=== PATIENT | female | born 1985 | race Caucasian/White ===

== ENCOUNTER 2020-01-26 09:00 | Outpatient (REF) | payer OTHER, MEDICAID, SELFPAY ==
--- NOTE | 2020-01-26 09:06 | XR_ITS ---
EXAMINATION: XR RIBS, RIGHT CLINICAL INFORMATION: Fluoroscopy diameter. COMPARISON: None TECHNIQUE: 3 views of the right ribs were obtained. Chest one view. FINDINGS: Dose: Lungs are clear. No consolidation, pneumothorax, or pleural effusion. The cardiomediastinal silhouette and pulmonary vasculature are normal. Right RIBS: There is no visible acute rib fracture or bony abnormality.. Marker placed along the right lower ribs reveal no fracture XR/XR ribs RT min 3V w CXR1V IMPRESSION: Unremarkable chest examination. Unremarkable right rib exam.
== END 2020-01-26 09:01 | disposition home or self-care (01) ==
LOC: HO.HMGCX 09:00
PROVIDERS: PCP Internal Medicine; Visit Provider Nurse Practitioner Family
DX: R07.81 Pleurodynia (principal)
CPT/HCPCS: 71101

== ENCOUNTER 2020-02-22 14:32 | Outpatient (REF) | payer OTHER, MEDICAID, SELFPAY ==
--- NOTE | 2020-02-22 14:34 | US_ITS ---
EXAMINATION: US VENOUS ULTRASOUND WITH DOPPLER LOWER EXTREMITY, RIGHT CLINICAL INFORMATION: Calf pain COMPARISON: None TECHNIQUE: Ultrasound of the deep veins is performed from the hip to the calf with compression sonography and color and pulse Doppler assessment. Spectral analysis with color-flow imaging is performed. FINDINGS: There is normal venous compression and respiratory variation and augmented flow. The visualized common femoral vein, superficial femoral vein, profunda femoral vein, popliteal vein, and the trifurcation region shows no evidence of deep venous thrombosis. There is no significant popliteal fossa cyst. Popliteal artery aneurysm. If the patient's symptoms persist, followup ultrasound in 5 days 7 days might be of value to exclude proximal propagation from a non-visualized calf vein. US/US venous duplex LE RT IMPRESSION: No acute DVT demonstrated in the right lower extremity.
== END 2020-02-22 14:33 | disposition home or self-care (01) ==
LOC: HO.HMGCX 14:32
PROVIDERS: PCP Internal Medicine; Visit Provider Nurse Practitioner Family
DX: M79.661 Pain in right lower leg (principal)
CPT/HCPCS: 93971

== ENCOUNTER 2020-02-26 12:07 | Outpatient (REF) | payer OTHER, MEDICAID, SELFPAY ==
[2020-02-26 13:53] LABS: MANUAL DIFF FLAG NO
[2020-02-26 14:10] LABS: Basophils Absolute Auto 0.1 X10*3/uL (0.0-0.2); Basophils Percent Auto 0.9 % (0-2); Eosinophils Absolute Auto 0.3 X10*3/uL (0.0-0.4); Eosinophils Percent Auto 3.5 % (0-4); Hematocrit 38.2 % (37-47); Hemoglobin 12.1 g/dl (12.0-16.0); Imm Gran Abs Auto 0.04 X10*3/uL (0.00-0.03); Imm Gran Pct Auto 0.4 % (0.0-0.4); Lymphocytes Absolute Auto 2.6 X10*3/uL (1.2-4.9); Lymphocytes Percent Auto 28.3 % (20-40); Mean Corpuscular HGB Conc 31.7 g/dl (31.0-35.0); Mean Corpuscular Hemoglobin 26.6 pg (27.0-33.0); Mean Platelet Volume 12.2 fL (9.4-12.3); Monocytes Absolute Auto 0.7 X10*3/uL (0.1-1.2); Monocytes Percent Auto 7.3 % (2-11); Neutrophils Absolute Auto 5.4 X10*3/uL (2.0-8.3); Neutrophils Percent Auto 59.6 % (45-73); Platelet Count 282 X10*3/uL (160-400); Red Blood Count 4.55 X10*6/uL (4.20-5.50); Red Cell Distribution Width 14.2 % (11.0-16.0)
[2020-02-26 14:18] LABS: D Dimer < 200 NG/ML
[2020-02-26 14:38] LABS: Anion Gap 13 (12-20); Blood Urea Nitrogen 13 mg/dL (9-16); Calcium 9.2 mg/dL (8.4-10.2); Carbon Dioxide 26 mmol/L (22-29); Chloride 105 mmol/L (96-108); Estimated Glomerular Filt Rate > 60; Glucose Random 83 mg/dL (60-115); Potassium 3.9 mmol/l (3.3-5.1); Sodium 140 mmol/L (135-145)
== END 2020-02-26 12:08 | disposition home or self-care (01) ==
LOC: HO.HMGCLDS 12:07
PROVIDERS: PCP Internal Medicine; Visit Provider Nurse Practitioner Family
DX: R06.02 Shortness of breath (principal)
CPT/HCPCS: 36415; 80048; 85025; 85379

== ENCOUNTER 2020-02-26 14:20 | Outpatient (REF) | payer OTHER, MEDICAID, SELFPAY ==
[2020-02-27 08:55] LABS: Influenza A PCR NEGATIVE (Negative); Influenza B PCR NEGATIVE (Negative); Resp Syncy Virus RNA Qual PCR NEGATIVE (Negative); SARS COV2 PCR INHOUSE NEGATIVE (Negative)
== END 2020-02-26 14:21 | disposition home or self-care (01) ==
LOC: HO.LAB 14:20
PROVIDERS: Visit Provider Nurse Practitioner Family
DX: R06.02 Shortness of breath (principal); M79.10 Myalgia, unspecified site; Z20.822 Contact with and (suspected) exposure to COVID-19
CPT/HCPCS: 0241U; 36415

== ENCOUNTER 2020-05-07 18:25 | Emergency (ER) | payer OTHER, MEDICAID, SELFPAY ==
--- NOTE | ~2020-05-07 | CT_ITS ---
EXAMINATION: CT HEAD WITHOUT CONTRAST CLINICAL INFORMATION: Hypertension. Headaches. COMPARISON: MRI of the brain May 09, 2010 TECHNIQUE: Contiguous axial imaging was performed from the skull base to vertex without intravenous administration of contrast. Coronal and sagittal reformatted images are performed at the CT scanner This CT examination was performed using dose optimization techniques as appropriate, variously including the following: *Automated exposure control *Adjustment of mA and/or kV according to patient size (this includes techniques or standardized protocols for targeted exams where dose is matched to indication/reason for exam; i.e. extremities or head) *Use of iterative reconstruction technique DLP: 554 mGy-cm FINDINGS: There is no evidence of acute intracranial hemorrhage or territorial infarction. No abnormal mass effect or midline shift is seen. Soares to white matter differentiation is well preserved. No extra-axial fluid collections are identified. The ventricles are normal in size. There is no abnormal attenuation within the brain parenchyma. The osseous structures and soft tissues are normal. The mastoid air cells and visualized portions of the paranasal sinuses are well aerated. CT/CT head/brain wo con IMPRESSION: No acute intracranial pathology.
[2020-05-07 18:41] VITALS: BP 196/97; PULSE 95; RESP 14; TEMP 36.4; O2SAT 100
--- NOTE | 2020-05-07 18:42 | ECG_ITS ---
Test Reason : Chest Pain Blood Pressure : / mmHG Vent. Rate : 092 BPM Atrial Rate : 092 BPM P-R Int : 126 ms QRS Dur : 080 ms QT Int : 352 ms P-R-T Axes : 035 065 040 degrees QTc Int : 435 ms Normal sinus rhythm Normal ECG When compared with ECG of 22:05 Questionable change in QRS axis Referred By: Max Hernandez Electronically Signed By: TERESITA REYNOLDS MD MTDDavid
[2020-05-07 20:15] VITALS: BP 188/97; PULSE 94; RESP 16; TEMP 36.6; O2SAT 100; BMI 29.1
[2020-05-07 20:28] LABS: MANUAL DIFF FLAG NO
[2020-05-07 20:31] LABS: Basophils Absolute Auto 0.1 X10*3/uL (0.0-0.2); Basophils Percent Auto 0.4 % (0-2); Eosinophils Absolute Auto 0.3 X10*3/uL (0.0-0.4); Eosinophils Percent Auto 2.8 % (0-4); Hematocrit 36.9 % (37-47); Hemoglobin 11.4 g/dl (12.0-16.0); Imm Gran Abs Auto 0.03 X10*3/uL (0.00-0.03); Imm Gran Pct Auto 0.3 % (0.0-0.4); Lymphocytes Absolute Auto 3.7 X10*3/uL (1.2-4.9); Lymphocytes Percent Auto 32.2 % (20-40); Mean Corpuscular HGB Conc 30.9 g/dl (31.0-35.0); Mean Corpuscular Hemoglobin 25.9 pg (27.0-33.0); Mean Corpuscular Volume 83.9 fL (80-98); Mean Platelet Volume 11.3 fL (9.4-12.3); Monocytes Absolute Auto 0.7 X10*3/uL (0.1-1.2); Neutrophils Absolute Auto 6.8 X10*3/uL (2.0-8.3); Neutrophils Percent Auto 58.3 % (45-73); Platelet Count 346 X10*3/uL (160-400); Red Cell Distribution Width 14.6 % (11.0-16.0); White Blood Count 11.6 X10*3/uL (4.8-10.8)
[2020-05-07 20:52] LABS: Anion Gap 15 (12-20); Blood Urea Nitrogen 14 mg/dL (9-16); Calcium 9.2 mg/dL (8.4-10.2); Carbon Dioxide 22 mmol/L (22-29); Chloride 106 mmol/L (96-108); Creatinine Clr Calc Pharmacy 95.8; Estimated Glomerular Filt Rate > 60; Glucose Random 85 mg/dL (60-115); Potassium 3.7 mmol/L (3.3-5.1); Sodium 139 mmol/L (135-145)
[2020-05-07 22:00] VITALS: BP 157/98; PULSE 86; RESP 15; O2SAT 98
--- NOTE | 2020-05-07 22:46 | ED.HA ---
HPI - Headache General Chief Complaint: Headache Stated Complaint: chest pain Time Seen by Provider: 05/07/20 22:42 Source: patient Mode of arrival: ambulatory Limitations: no limitations History of Present Illness HPI Narrative: Patient's history of occasional migraine headache, hypertension on amlodipine and losartan for hypertension and blood pressure usually controlled since 10:00 morning today patient has been having headache mostly localized in the frontal part no light sensitivity but sensitive to sound + slight nausea. 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 Also patient complaining of subjective tingling and numbness right hand MD elicited complaint: headache and migraine Onset (ago): hour(s) Onset description: gradually Location: frontal Severity: moderate Quality & Timing: throbbing Exacerbating factors: none and noise Relieving factors: nothing Context: occurred at rest Associated symptoms: sensitivity to sound, tingling and numbness Treatments prior to arrival: none Related Data Home Medications Medication Instructions Recorded Confirmed ibuprofen 800 mg tablet 800 mg PO TID 01/26/20 04/21/20 losartan 25 mg tablet 25 mg PO DAILY 01/26/20 04/21/20 amlodipine 10 mg tablet 10 mg PO DAILY 02/15/20 04/21/20 aspirin 81 mg tablet,delayed 81 mg PO DAILY 02/26/20 04/21/20 release Previous Rx's Medication Instructions Recorded levocetirizine 5 mg tablet 5 mg PO QPM PRN #30 tab 02/08/20 albuterol sulfate 90 mcg/actuation 1 puff INHALATION Q4H PRN #8.5 g 02/22/20 aerosol inhaler [id number]-qbcxiae-lwwxtoic 50 1 tab PO Q6H PRN #20 tab 04/19/20 mg-325 mg-40 mg tablet losartan 50 mg tablet 50 mg PO DAILY #30 tab 04/19/20 Allergies Allergy/AdvReac Type Severity Reaction Status Date / Time Iodinated Contrast Media AdvReac Mild HIVES Verified 04/21/20 23:35 [IV CONTRAST] azithromycin AdvReac Unknown nausea and Verified 04/21/20 23:35 [Zithromax Z-Darvin] vomiting Review of Systems Review of Systems: Constitutional : No Weight loss, No Fever, No Chills ENT/Mouth : No sore throat, No Rhinorrhea Eyes: No Eye Pain, No Swelling Cardiovascular : No Chest Pain, no palpitations Respiratory : No Cough, No Sputum, no shortness of breath Gastrointestinal : no Nausea, No Vomiting, No Diarrhea, No abdominal Pain, no black stools Genitourinary : No Dysuria, No Urinary Frequency Musculoskeletal : No joint pain, No Myalgias, No Joint Swelling Skin : No Skin Lesions, No rash Neuro : No Weakness, No Numbness, No Dizziness, ++ Headache Psych : No Anxiety/Panic, No Depression Heme/Lymph: No Bruising, No Lymphadenopathy Endocrine : No Polyuria, No Polydipsia All other systems reviewed and are negative FOR[facility]LY [facility] Past Medical History Medical History Acute right flank pain Close exposure to COVID-19 virus Conjunctivitis Environmental and seasonal allergies Essential hypertension History of nephrolithiasis Myalgia after COVID-19 vaccination Nephrolithiasis Reactive airway disease Right arm pain Surgical History No pertinent past surgical history Family History Family History Mother Diabetes mellitus Hypertension Social History Social History Alcohol intake: current Alcohol intake frequency: does not drink Smoking Status: Never smoker Use of substances other than those prescribed or required for medical reasons: Yes Substance Use Type: Marijuana Substance Use Frequency: Socially Advance Directives: No Advance Directives Information Provided: Yes Physical Exam Vital Signs: Vital Signs: Last Vital Signs Temp 98 F 05/07/20 20:15 Pulse 85 05/08/20 00:52 Resp 15 05/08/20 00:00 BP 157/102 H 05/08/20 00:52 Pulse Ox 99 05/08/20 00:00 Body Mass Index 29.1 Appearance: Alert. Oriented X3. No acute distress. Eyes: Pupils equal, round and reactive to light. ENT: Pharynx normal. No temporal artery tenderness Neck: Normal inspection. Neck supple. CVS: Normal heart rate and rhythm. Pulses normal. Respiratory: No respiratory distress. Breath sounds normal. Abdomen: Soft and nontender. Bowel sounds are present, no mass palpable, no CVA tenderness Skin: Skin warm and dry. Normal skin color. Normal skin turgor. Extremities: No lower extremity edema. Neuro: Oriented X 3. No motor deficit. No sensory deficit. Cranial nerves 2-12 intact no cerebellar signs MDM - Headache MDM Narrative Medical decision making narrative: Patient with hypertension and migraine headaches headache responded to Imitrex CT scan head is negative for any acute pathology. Patient's persistent hypertension on amlodipine and losartan will advice to increase the dose of losartan to 100 mg daily for persistent hypertension and advised to follow-up with PCP about the dosing of losartan and hypertension management Differential Diagnosis Differential diagnosis: Likely migraine Lab Data Attestation: I reviewed the patient's lab results. Result diagrams: 05/07/20 20:22 05/07/20 20:22 Labs: Lab Results 05/07/20 05/07/20 05/07/20 Range/Units 20:22 20:22 20:22 WBC 11.6 H (4.8-10.8) X10*3/uL RBC 4.40 (4.20-5.50) X10*6/uL Hgb 11.4 L (12.0-16.0) g/dl Hct 36.9 L (37-47) % MCV 83.9 (80-98) fL MCH 25.9 L (27.0-33.0) pg MCHC 30.9 L (31.0-35.0) g/dl RDW 14.6 (11.0-16.0) % Plt Count 346 (160-400) X10*3/uL MPV 11.3 (9.4-12.3) fL Immature Gran % (Auto) 0.3 (0.0-0.4) % Neut % (Auto) 58.3 (45-73) % Lymph % (Auto) 32.2 (20-40) % [place] % (Auto) 6.0 (2-11) % Eos % (Auto) 2.8 (0-4) % Baso % (Auto) 0.4 (0-2) % Lymph # (Auto) 3.7 (1.2-4.9) X10*3/uL [place] # (Auto) 0.7 (0.1-1.2) X10*3/uL Eos # (Auto) 0.3 (0.0-0.4) X10*3/uL Baso # (Auto) 0.1 (0.0-0.2) X10*3/uL Abs Immat Gran (auto) 0.03 (0.00-0.03) X10*3/uL Absolute Neuts (auto) 6.8 (2.0-8.3) X10*3/uL Absolute Nucleated RBC 0.000 (0.0-0.012) X10*3/uL Nucleated RBC % (auto) 0.0 (0.0-0.2) /100WBC Hold Blue Top SEE NOTE Sodium 139 (135-145) mmol/L Potassium 3.7 (3.3-5.1) mmol/L Chloride 106 (96-108) mmol/L Carbon Dioxide 22 (22-29) mmol/L Anion Gap 15 (12-20) BUN 14 (9-16) mg/dL Creatinine 0.71 (0.5-1.4) mg/dL Estim Creat Clear Calc 95.8 Estimated GFR > 60 Random Glucose 85 (60-115) mg/dL Calcium 9.2 (8.4-10.2) mg/dL Discharge Plan Discharge Prescriptions: No Action losartan 25 mg tablet 25 mg PO DAILY RF: 0 ibuprofen 800 mg tablet 800 mg PO TID RF: 0 levocetirizine 5 mg tablet 5 mg PO QPM PRN (Reason: allergy symptoms) Qty: 30 RF: 0 amlodipine 10 mg tablet 10 mg PO DAILY RF: 0 albuterol sulfate 90 mcg/actuation HFA aerosol inhaler 1 puff inhalation Q4H PRN (Reason: shortness of breath or wheezing) Qty: 8.5 RF: 1 losartan 50 mg tablet 50 mg PO DAILY Qty: 30 RF: 5 ioewyptqwr-kqorrio-cdpodcwj 50-325-40 mg tablet 1 tab PO Q6H PRN (Reason: pain) Qty: 20 RF: 0 aspirin [Adult Low Dose Aspirin] 81 mg tablet,delayed release (DR/EC) 81 mg PO DAILY RF: 0
[2020-05-08] VITALS: BP 140/89; PULSE 83; RESP 15; O2SAT 99
[2020-05-08] MEDS: Losartan Potassium 50 MG TABLET 25 MG PO (00:10)
[2020-05-08 00:52] VITALS: BP 157/102; PULSE 85
[2020-05-08] MEDS: Losartan Potassium 25 MG TABLET PO (00:52)
== END 2020-05-08 01:59 | disposition home or self-care (01) ==
PROVIDERS: Emergency Provider Internal Medicine; PCP Internal Medicine
DX: G43.909 Migraine, unspecified, not intractable, without status migrainosus (principal); F12.90 Cannabis use, unspecified, uncomplicated; Z79.899 Other long term (current) drug therapy
CPT/HCPCS: 36415; 70450; 80048; 85025; 93005; 99284; J3030

== ENCOUNTER 2020-05-08 09:03 | Emergency (ER) | payer OTHER, MEDICAID, SELFPAY ==
[2020-05-08 09:39] VITALS: BP 128/92; PULSE 94; RESP 18; TEMP 37.1; O2SAT 100; BMI 29.0
--- NOTE | 2020-05-08 10:10 | ECG_ITS ---
Test Reason : CHEST PAIN Blood Pressure : / mmHG Vent. Rate : 080 BPM Atrial Rate : 080 BPM P-R Int : 130 ms QRS Dur : 078 ms QT Int : 394 ms P-R-T Axes : 011 061 035 degrees QTc Int : 454 ms Normal sinus rhythm Normal ECG When compared with ECG of 07-MAY-2020 18:42, No significant change was found Referred By: Mookie Abarca Electronically Signed By:TERESITA REYNOLDS MD
--- NOTE | 2020-05-08 10:11 | ED_ITS ---
HPI - Headache General Chief Complaint: Headache Stated Complaint: MIGRAINE Time Seen by Provider: 05/08/20 09:38 Source: patient Mode of arrival: ambulatory Limitations: no limitations History of Present Illness HPI Narrative: Patient presents to ED presenting as headache migraine exacerbation. Patient stating generalized headache with light sensitivity and nausea. Patient denies any neck stiffness, fever, chills, or recent trauma to the head. Patient was seen here yesterday with similar complaints, but that time had elevated blood pressure. Patient states she was informed to increase her losartan. Patient was prescribed Imitrex but has not yet started taking the medication. Patient return to ED because today she still having the headache and had no relief with extra strenght Tylenol. Patient denies any slurred speech, loss of vision, paralysis of extremities, chest pain, shortness of breath, or dizziness. Related Data Home Medications Medication Instructions Recorded Confirmed ibuprofen 800 mg tablet 800 mg PO TID 01/26/20 04/21/20 losartan 25 mg tablet 25 mg PO DAILY 01/26/20 04/21/20 amlodipine 10 mg tablet 10 mg PO DAILY 02/15/20 04/21/20 aspirin 81 mg tablet,delayed 81 mg PO DAILY 02/26/20 04/21/20 release Previous Rx's Medication Instructions Recorded levocetirizine 5 mg tablet 5 mg PO QPM PRN #30 tab 02/08/20 albuterol sulfate 90 mcg/actuation 1 puff INHALATION Q4H PRN #8.5 g 02/22/20 aerosol inhaler [id number]-muwwths-omhjvuqy 50 1 tab PO Q6H PRN #20 tab 04/19/20 mg-325 mg-40 mg tablet losartan 50 mg tablet 50 mg PO DAILY #30 tab 04/19/20 naproxen 500 mg PO BID PRN #20 tab 05/08/20 sumatriptan succinate [Imitrex] 50 mg PO Q2H PRN #10 tab 05/08/20 Allergies Allergy/AdvReac Type Severity Reaction Status Date / Time Iodinated Contrast Media AdvReac Mild HIVES Verified 04/21/20 23:35 [IV CONTRAST] azithromycin AdvReac Unknown nausea and Verified 04/21/20 23:35 [Zithromax Z-Darvin] vomiting Review of Systems Review of Systems: Yes all other systems are reviewed and are negative Constitutional: Constitutional: Reports as per HPI, Reports no additional constitutional complaints and Reports headache(s) Eyes: Eyes: Reports as per HPI and Reports no additional eye complaints ENT: Reports system reviewed and no additional complaints, except as documented, Reports as per HPI and Reports headache(s) Cardiovascular: Cardiovascular: Reports as per HPI and Reports no additional cardiovascular complaints Respiratory: Respiratory: Reports as per HPI and Reports no additional respiratory complaints Gastrointestinal: Gastrointestinal: Reports as per HPI, Reports no additional gastrointestinal complaints and Reports nausea Genitourinary: Genitourinary: Reports no additional female genitourinary complaints and Reports as per HPI Musculoskeletal: Musculoskeletal: Reports no additional musculoskeletal complaints and Reports as per HPI Neurologic: Reports system reviewed and no additional complaints, except as documented, Reports as per HPI and Reports headache(s) Psychiatric: Psychiatric: Reports no additional psychiatric complaints and Rep orts as per HPI PMFSH Past Medical History Medical History Acute right flank pain Close exposure to COVID-19 virus Conjunctivitis Environmental and seasonal allergies Essential hypertension History of nephrolithiasis Myalgia after COVID-19 vaccination Nephrolithiasis Reactive airway disease Right arm pain Surgical History No pertinent past surgical history Family History Family History Mother Diabetes mellitus Hypertension Social History Social History Alcohol intake: never Smoking Status: Never smoker Use of substances other than those prescribed or required for medical reasons: No Substance Use Type: Marijuana Advance Directives: No Advance Directives Information Provided: No Physical Exam Vital Signs: Vital Signs: Last Vital Signs Temp 98.1 F 05/08/20 11:59 Pulse 83 05/08/20 11:59 Resp 18 05/08/20 11:59 BP 141/93 H 05/08/20 11:59 Pulse Ox 100 05/08/20 11:59 Body Mass Index 29.0 Const: General: cooperative, healthy appearing, comfortable, no acute distress, well developed, alert and awake Orientation/consciousness: patient oriented x3 HENMT: Head: Yes normal to inspection, Yes No palpable skull fracture present, Yes normocephalic, No atraumatic, No abrasion, No Crow's sign, No contusion, No cranial bruits, No hematoma, No laceration, No occipital foramen tenderness, No palpable skull fracture, No raccoon eyes, No scalp lesion, No scalp tenderness, No Temporal artery tenderness present and No periorbital ecchymosis Eyes: Other: Mild photosensitivity. Negative nystagmus General: appearance normal, both eyes and all related structures Neck: Neck: Yes normal visual inspection, Yes full ROM, Yes no lymphadenopathy, Yes no meningeal signs, Yes trachea midline, Yes supple and No tender Chest: Chest palpation & inspection: normal inspection of the chest and normal palpation of entire chest wall Resp: Effort & Inspection: normal respiratory effort and able to speak in complete sentences Auscultation: clear to auscultation bilaterally Cardio: Jugular venous distension: no JVD Heart sounds: S1 normal heart sound present and S2 normal heart sound present GI: Inspection: Yes normal to inspection and No abdominal wall ecchymosis Palpation (GI): Soft to palpation, not firm, nontender, no guarding and not rigid : General: No CVA tenderness and Yes no CVA tenderness Back/Spine/Pelvis: Back: no CVA tenderness, No CVA tenderness and No back tenderness Skin: General skin exam: no rashes or lesions noted and elasticity normal Neuro: Other: Negative facial droop. Negative slurred speech. Negative pronator drift. All extremities equal strength 5+. Negative Romberg. F vpxld-lj-kbgu and rapid hand movement intact. General: patient oriented x3, no meningeal signs and CN's II-XI intact bilaterally Cranial nerves: Yes CN's II-XII intact bilaterally Extrem: General: Yes normal to inspection and Yes full ROM Psych: Appearance: grossly normal, well kempt and not disheveled Course Course Course Narrative: History physical exam indicate migraine exacerbation. Not suspecting meningitis or brain bleed. Patient is not having no thunderclap. Patient have headache since yesterday at 10:00 and had a normal head CT in the evening 6 hours after onset. Not suspecting stroke. Neuro exam is intact. Negative for neuro deficit. No need for repeat imaging. Will give migraine cocktail. Also due to patient having history of high blood pressure will do EKG and 1 troponin to make sure it is not typical [place] presentation. Reevaluation(s) Reevaluation #1: Patient states she feels headache resolved after receiving meds. EKG negative STEMI. Waiting for lab work. Patient no longer has headache. Reevaluation #2: Patient blood work normal. Patient's troponin negative. Patient will be discharged with naproxen. Patient informed to follow-up with PCP for Neurology referral. Once again not suspect a meningitis or brain bleed. Not suspecting stroke. Negative for any neuro deficit. Patient had CT scan yesterday 6 hours after onset of symptoms. Negative for any neck stiffness. Negative for temporal tenderness on palpation. no History of HIV and herpes to indicate possible aseptic meningitis. MDM - Headache MDM Narrative Medical decision making narrative: Migraine exacerbation Lab Data Result diagrams: 05/08/20 11:47 05/08/20 11:47 Labs: Lab Results 05/08/20 05/08/20 05/08/20 Range/Units 11:47 11:47 11:47 WBC 8.3 (4.8-10.8) X10*3/uL RBC 4.75 (4.20-5.50) X10*6/uL Hgb 12.4 (12.0-16.0) g/dl Hct 40.0 (37-47) % MCV 84.2 (80-98) fL MCH 26.1 L (27.0-33.0) pg MCHC 31.0 (31.0-35.0) g/dl RDW 14.6 (11.0-16.0) % Plt Count 329 (160-400) X10*3/uL MPV 11.3 (9.4-12.3) fL Immature Gran % (Auto) 0.2 (0.0-0.4) % Neut % (Auto) 65.8 (45-73) % Lymph % (Auto) 23.4 (20-40) % [place] % (Auto) 6.7 (2-11) % Eos % (Auto) 3.4 (0-4) % Baso % (Auto) 0.5 (0-2) % Lymph # (Auto) 1.9 (1.2-4.9) X10*3/uL [place] # (Auto) 0.6 (0.1-1.2) X10*3/uL Eos # (Auto) 0.3 (0.0-0.4) X10*3/uL Baso # (Auto) 0.0 (0.0-0.2) X10*3/uL Abs Immat Gran (auto) 0.02 (0.00-0.03) X10*3/uL Absolute Neuts (auto) 5.4 (2.0-8.3) X10*3/uL Absolute Nucleated RBC 0.000 (0.0-0.012) X10*3/uL Nucleated RBC % (auto) 0.0 (0.0-0.2) /100WBC PT 12.9 (10.8-13.0) SEC INR 1.1 (0.9-1.1) APTT 43.5 H (24.1-38.0) SEC Sodium 141 (135-145) mmol/L Potassium 3.9 (3.3-5.1) mmol/L Chloride 109 H (96-108) mmol/L Carbon Dioxide 22 (22-29) mmol/L Anion Gap 14 (12-20) BUN 9 (9-16) mg/dL Creatinine 0.67 (0.5-1.4) mg/dL Estim Creat Clear Calc 101.4 Estimated GFR > 60 Random Glucose 88 (60-115) mg/dL Calcium 8.4 D (8.4-10.2) mg/dL Total Bilirubin 0.3 (0.0-1.0) mg/dL AST 14 (5-31) U/L ALT 12 (0-31) U/L Alkaline Phosphatase 91 (39-117) U/L Troponin I High Sens (<3.5-17.0) ng/L Total Protein 7.6 (6.5-8.0) g/dL Albumin 4.5 (3.5-5.0) g/dL Beta HCG, Quant < 2 mIU/mL 05/08/20 Range/Units 11:47 WBC (4.8-10.8) X10*3/uL RBC (4.20-5.50) X10*6/uL Hgb (12.0-16.0) g/dl Hct (37-47) % MCV (80-98) fL MCH (27.0-33.0) pg MCHC (31.0-35.0) g/dl RDW (11.0-16.0) % Plt Count (160-400) X10*3/uL MPV (9.4-12.3) fL Immature Gran % (Auto) (0.0-0.4) % Neut % (Auto) (45-73) % Lymph % (Auto) (20-40) % [place] % (Auto) (2-11) % Eos % (Auto) (0-4) % Baso % (Auto) (0-2) % Lymph # (Auto) (1.2-4.9) X10*3/uL [place] # (Auto) (0.1-1.2) X10*3/uL Eos # (Auto) (0.0-0.4) X10*3/uL Baso # (Auto) (0.0-0.2) X10*3/uL Abs Immat Gran (auto) (0.00-0.03) X10*3/uL Absolute Neuts (auto) (2.0-8.3) X10*3/uL Absolute Nucleated RBC (0.0-0.012) X10*3/uL Nucleated RBC % (auto) (0.0-0.2) /100WBC PT (10.8-13.0) SEC INR (0.9-1.1) APTT (24.1-38.0) SEC Sodium (135-145) mmol/L Potassium (3.3-5.1) mmol/L Chloride (96-108) mmol/L Carbon Dioxide (22-29) mmol/L Anion Gap (12-20) BUN (9-16) mg/dL Creatinine (0.5-1.4) mg/dL Estim Creat Clear Calc Estimated GFR Random Glucose (60-115) mg/dL Calcium (8.4-10.2) mg/dL Total Bilirubin (0.0-1.0) mg/dL AST (5-31) U/L ALT (0-31) U/L Alkaline Phosphatase (39-117) U/L Troponin I High Sens < 3.5 (<3.5-17.0) ng/L Total Protein (6.5-8.0) g/dL Albumin (3.5-5.0) g/dL Beta HCG, Quant mIU/mL ECG Data Interpretation: Normal sinus rhythm. Normal EKG. The COVID 80. FL interval 130. QRS 78. QTC 454. Negative STEMI Discharge Plan Discharge Clinical Impression: Migraine Patient Disposition: Home, Self-Care Instructions: Migraine Headache (ED) Additional Instructions: Return to the ED immediately for any fever, chills, neck stiffness, worsening headache, loss of vision, slurred speech, paralysis of extremities, or any other concerning symptoms. Prescriptions: New naproxen 500 mg tablet 500 mg PO BID PRN (Reason: pain) Qty: 20 RF: 0 No Action sumatriptan succinate [Imitrex] 50 mg tablet 50 mg PO Q2H PRN (Reason: migraine headache) Qty: 10 RF: 0 losartan 25 mg tablet 25 mg PO DAILY RF: 0 ibuprofen 800 mg tablet 800 mg PO TID RF: 0 levocetirizine 5 mg tablet 5 mg PO QPM PRN (Reason: allergy symptoms) Qty: 30 RF: 0 amlodipine 10 mg tablet 10 mg PO DAILY RF: 0 albuterol sulfate 90 mcg/actuation HFA aerosol inhaler 1 puff inhalation Q4H PRN (Reason: shortness of breath or wheezing) Qty: 8.5 RF: 1 losartan 50 mg tablet 50 mg PO DAILY Qty: 30 RF: 5 msqbyfmihr-pjbaanv-iecelqbd 50-325-40 mg tablet 1 tab PO Q6H PRN (Reason: pain) Qty: 20 RF: 0 aspirin [Adult Low Dose Aspirin] 81 mg tablet,delayed release (DR/EC) 81 mg PO DAILY RF: 0 Referrals: Wendy Rivera MD [Primary Care Provider] - 2 days (Referred to Neurology for migraine exacerbation) Stand Alone Forms: Work/School Release Interventions: ED Discharge Assessment Last Done: 05/08/20 13:16 Discharge Date/Time: 05/08/20 13:17 Print Language: Pashto
[2020-05-08] MEDS: diphenhydrAMINE HCL 50 MG/ML VIAL IVPUSH (10:30)
[2020-05-08] MEDS: Metoclopramide HCl 10 MG/2 ML VIAL IVPUSH (10:30)
[2020-05-08] MEDS: 0.9 % Sodium Chloride 1,000 ML 999 ML IV (10:30)
[2020-05-08] MEDS: Butalb/Acetamin/Caff 50/325/40 TABLET 1 TAB PO (10:31)
[2020-05-08] MEDS: Ketorolac Tromethamine 30 MG/ML VIAL IVPUSH (10:31)
[2020-05-08 11:56] LABS: MANUAL DIFF FLAG NO
[2020-05-08 11:58] LABS: Basophils Percent Auto 0.5 % (0-2); Eosinophils Absolute Auto 0.3 X10*3/uL (0.0-0.4); Eosinophils Percent Auto 3.4 % (0-4); Hemoglobin 12.4 g/dl (12.0-16.0); Imm Gran Abs Auto 0.02 X10*3/uL (0.00-0.03); Imm Gran Pct Auto 0.2 % (0.0-0.4); Lymphocytes Absolute Auto 1.9 X10*3/uL (1.2-4.9); Lymphocytes Percent Auto 23.4 % (20-40); Mean Corpuscular Hemoglobin 26.1 pg (27.0-33.0); Mean Corpuscular Volume 84.2 fL (80-98); Mean Platelet Volume 11.3 fL (9.4-12.3); Monocytes Absolute Auto 0.6 X10*3/uL (0.1-1.2); Monocytes Percent Auto 6.7 % (2-11); Neutrophils Absolute Auto 5.4 X10*3/uL (2.0-8.3); Neutrophils Percent Auto 65.8 % (45-73); Platelet Count 329 X10*3/uL (160-400); Red Blood Count 4.75 X10*6/uL (4.20-5.50); Red Cell Distribution Width 14.6 % (11.0-16.0); White Blood Count 8.3 X10*3/uL (4.8-10.8)
[2020-05-08 11:59] VITALS: BP 141/93; PULSE 83; RESP 18; TEMP 36.7; O2SAT 100
--- NOTE | 2020-05-08 12:01 | PC.NURSE ---
patient a&ox3, vitals stable, patient states her headache is down to 2/10, ivf continues to run slow, will continue to monitor.
[2020-05-08 12:02] LABS: INTERNATIONAL NORM RATIO 1.1 (0.9-1.1); Prothrombin Time 12.9 SEC (10.8-13.0)
[2020-05-08 12:13] LABS: Partial Thromboplastin Time 43.5 SEC (24.1-38.0)
[2020-05-08 12:27] LABS: Alanine Aminotransferase 12 U/L (0-31); Albumin Level 4.5 g/dL (3.5-5.0); Alkaline Phosphatase 91 U/L (39-117); Anion Gap 14 (12-20); Aspartate Amino Transferase 14 U/L (5-31); Bilirubin Total 0.3 mg/dL (0.0-1.0); Blood Urea Nitrogen 9 mg/dL (9-16); Calcium 8.4 mg/dL (8.4-10.2); Carbon Dioxide 22 mmol/L (22-29); Chloride 109 mmol/L (96-108); Creatinine Clr Calc Pharmacy 101.4; Estimated Glomerular Filt Rate > 60; Glucose Random 88 mg/dL (60-115); Potassium 3.9 mmol/L (3.3-5.1); Sodium 141 mmol/L (135-145); Total Protein 7.6 g/dL (6.5-8.0)
[2020-05-08 12:33] LABS: Troponin-I High Sensitivity < 3.5 ng/L (<3.5-17.0)
[2020-05-08 13:59] LABS: HCG Quantitative < 2 mIU/mL
== END 2020-05-08 13:17 | disposition home or self-care (01) ==
PROVIDERS: Physician Assistant; Emergency Provider Emergency Medicine; PCP Internal Medicine
DX: G43.909 Migraine, unspecified, not intractable, without status migrainosus (principal); I10 Essential (primary) hypertension; F12.90 Cannabis use, unspecified, uncomplicated
CPT/HCPCS: 36415; 80053; 84484; 84702; 85025; 85610; 85730; 93005; 96361; 96374; 96375; 99284; 99285; J1200; J1885; J2765

== ENCOUNTER 2020-10-01 14:44 | Emergency (ER) | payer OTHER, MEDICAID, SELFPAY ==
--- NOTE | ~2020-10-01 | CT_ITS ---
EXAMINATION: CT ABDOMEN AND PELVIS WITHOUT CONTRAST CLINICAL INFORMATION: Right flank pain with history of kidney stone COMPARISON: 12/07/2018 TECHNIQUE: Multidetector volumetric imaging was performed from the superior aspect of the liver through the pubic symphysis. Sagittal and coronal reformatted images were obtained on the technologist's workstation. This CT examination was performed using dose optimization techniques as appropriate, variously including the following: *Automated exposure control *Adjustment of mA and/or kV according to patient size (this includes techniques or standardized protocols for targeted exams where dose is matched to indication/reason for exam; i.e. extremities or head) *Use of iterative reconstruction technique DLP: 47 mGy-cm FINDINGS: LUNG BASES: The visualized lung bases are unremarkable. LIVER, GALLBLADDER, AND BILIARY TREE: The liver is normal in size, shape, and attenuation. No focal hepatic lesion or biliary ductal dilatation is present. The gallbladder is unremarkable with no evidence of radiopaque gallstones, gallbladder wall thickening, or obvious pericholecystic inflammatory changes. PANCREAS: Unremarkable. SPLEEN: Small splenule seen posterior to the spleen. The spleen is normal in size. ADRENAL GLANDS: Unremarkable. KIDNEYS AND URETERS: 2 mm nonobstructing left upper pole calculus. Small left extrarenal pelvis, similar to 12/07/2018. There is mild right hydronephrosis and a dilated right renal pelvis with a dilated right ureter followed into the pelvis. These findings are increased from the prior study 12/07/2018. The dilated right ureter narrows somewhat in the pelvis. No radiopaque right-sided calculi are seen within the right kidney or ureter. BLADDER: The bladder is moderately distended. No wall thickening or calculi seen. GASTROINTESTINAL TRACT: The stomach and small bowel are nondilated. Normal appendix. No evidence of colitis or diverticulitis. A few scattered colonic diverticula are present. ABDOMINAL WALL: No significant hernia is appreciated. LYMPH NODES: Normal. VASCULAR: Unremarkable. PELVIC VISCERA: The uterus and adnexa are unremarkable. OSSEOUS STRUCTURES: Unremarkable. CT/CT abdomen pelvis wo con IMPRESSION: There is mild right hydronephrosis and hydroureter, findings which are new/increased from the prior CT scan 12/07/2018. No radiopaque calculi are seen in the right kidney, right ureter, or urinary bladder. A nonradiopaque calculus or recently passed stone could give this appearance. Recommend clinical correlation. There is a 2 mm nonobstructing left upper pole calculus.
[2020-10-01 14:59] VITALS: BP 161/96; PULSE 90; RESP 18; TEMP 36.7; O2SAT 100; BMI 28.7
[2020-10-01 15:13] LABS: Glucose Urine UA NEG (NEG); Leukocyte Esterase Urine NEG (NEG); Nitrite Urine NEG (NEG); Specific Gravity - Urine >= 1.030 (1.005-1.025); UACC Culture Trigger NO; Urine Blood TRACE (NEG); Urine Ketones 5 MG/DL (NEG); Urine Protein TRACE MG/DL (NEG-TRACE)
[2020-10-01 15:24] LABS: Appearance Urine HAZY; Color Urine YELLOW
[2020-10-01 15:25] LABS: Bacteria Urine 1+ /LPF; RBC Urine 0-2 /HPF (0); Squamous Epithelial Cell Urine 2+ /LPF; WBC Urine 0 /HPF (0-4)
--- NOTE | 2020-10-01 16:36 | ED_ITS ---
HPI - General Adult General Chief complaint: General Medical Stated complaint: flank pain Time Seen by Provider: 10/01/20 16:36 Source: patient Mode of arrival: ambulatory Limitations: no limitations History of Present Illness HPI narrative: Patient's history of kidney stone been having dysuria frequency for last 2 days seen in walk-in clinic today UA showed some blood and few bacteria started on cephalexin comes here as pain is getting worse now in the left flank area started today in the morning and is getting worse now Sim to that when she had kidney stones. No fever no chills no nausea no vomiting Related Data Home Medications Medication Instructions Recorded Confirmed amlodipine 10 mg tablet 10 mg PO DAILY 02/15/20 05/23/20 naproxen 500 mg tablet 500 mg PO BID PRN 09/03/20 Previous Rx's Medication Instructions Recorded levocetirizine 5 mg tablet 5 mg PO QPM PRN #30 tab 02/08/20 albuterol sulfate 90 mcg/actuation 1 puff INHALATION Q4H PRN #8.5 g 02/22/20 aerosol inhaler losartan 50 mg tablet 50 mg PO DAILY #30 tab 04/19/20 sumatriptan succinate 50 mg tablet 50 mg PO Q2H PRN #10 tab 05/08/20 (Imitrex) propranolol 60 mg capsule,24 60 mg PO BEDTIME #30 cap 05/09/20 hr,extended release (Inderal LA) naproxen 500 mg tablet 500 mg PO DAILY PRN #30 tab 09/03/20 tramadol 50 mg tablet 50 mg PO Q6H PRN #20 tab 10/01/20 Allergies Allergy/AdvReac Type Severity Reaction Status Date / Time Iodinated Contrast Media AdvReac Mild HIVES Verified 10/01/20 14:58 [IV CONTRAST] azithromycin AdvReac Unknown nausea and Verified 10/01/20 14:58 [Zithromax Z-Darvin] vomiting Review of Systems Review of Systems: Yes all other systems are reviewed and are negative PMFSH Past Medical History Medical History Environmental and seasonal allergies Essential hypertension History of nephrolithiasis Nephrolithiasis Reactive airway disease Surgical History No pertinent past surgical history Family History Family History Mother Diabetes mellitus Hypertension Social History Social History Alcohol intake: never Substance Use Type: Marijuana Advance Directives: No Advance Directives Information Provided: No Patient : No Physical Exam Vital Signs: Vital Signs: Last Vital Signs Temp 98.0 F 10/01/20 14:59 Pulse 90 10/01/20 14:59 Resp 18 10/01/20 14:59 BP 161/96 H 10/01/20 14:59 Pulse Ox 100 10/01/20 14:59 Body Mass Index 28.7 Appearance: Alert. Oriented X3. No acute distress. ENT: Pharynx normal. Oral Mucosa moist Neck: Normal inspection. Neck supple. CVS: Normal heart rate and rhythm. Pulses normal. Respiratory: No respiratory distress. Equal air entry bilateral, no wheezing/rales/rhonchi Abdomen: Soft and nontender. Bowel sounds are present, no mass palpable, right CVA tenderness ++ Skin: Skin warm and dry. Normal skin color. Normal skin turgor. Extremities: No lower extremity edema. No calf tenderness Neuro: Oriented X 3. Medical Decision Making MDM Narrative Medical decision making narrative: Patient with right hydronephrosis without any obstructive lesion/stone similar to that in the past. Patient advised to follow-up with urologist for further evaluation Lab Data Lab results reviewed: Yes I reviewed the patient's lab results. Result diagrams: 10/01/20 17:10 10/01/20 17:10 Labs: Lab Results 10/01/20 10/01/20 10/01/20 Range/Units 15:06 17:10 17:10 WBC 14.8 H (4.8-10.8) X10*3/uL RBC 4.42 (4.20-5.50) X10*6/uL Hgb 11.5 L (12.0-16.0) g/dl Hct 36.3 L (37-47) % MCV 82.1 (80-98) fL MCH 26.0 L (27.0-33.0) pg MCHC 31.7 (31.0-35.0) g/dl RDW 14.3 (11.0-16.0) % Plt Count 280 (160-400) X10*3/uL MPV 11.2 (9.4-12.3) fL Immature Gran % (Auto) 0.5 H (0.0-0.4) % Neut % (Auto) 73.3 H (45-73) % Lymph % (Auto) 17.9 L (20-40) % [place] % (Auto) 6.6 (2-11) % Eos % (Auto) 1.4 (0-4) % Baso % (Auto) 0.3 (0-2) % Lymph # (Auto) 2.7 (1.2-4.9) X10*3/uL [place] # (Auto) 1.0 (0.1-1.2) X10*3/uL Eos # (Auto) 0.2 (0.0-0.4) X10*3/uL Baso # (Auto) 0.1 (0.0-0.2) X10*3/uL Abs Immat Gran (auto) 0.07 H (0.00-0.03) X10*3/uL Absolute Neuts (auto) 10.9 H (2.0-8.3) X10*3/uL Absolute Nucleated RBC 0.000 (0.0-0.012) X10*3/uL Nucleated RBC % (auto) 0.0 (0.0-0.2) /100WBC Sodium 141 (135-145) mmol/L Potassium 3.6 (3.3-5.1) mmol/L Chloride 108 (96-108) mmol/L Carbon Dioxide 25 (22-29) mmol/L Anion Gap 12 (12-20) BUN 12 (9-16) mg/dL Creatinine 0.77 (0.5-1.4) mg/dL Estim Creat Clear Calc 86.9 Estimated GFR > 60 Random Glucose 92 (60-115) mg/dL Calcium 9.0 D (8.4-10.2) mg/dL Beta HCG, Quant < 2 mIU/mL Urine Color YELLOW Urine Appearance HAZY Urine pH 6.0 (5.0-8.0) Ur Specific [place] >= 1.030 H (1.005-1.025) Urine Protein TRACE (NEG-TRACE) MG/DL Urine Glucose (UA) NEG (NEG) MG/DL Urine Ketones 5 (NEG) MG/DL Urine Blood TRACE (NEG) Urine Nitrite NEG (NEG) Ur Leukocyte Esterase NEG (NEG) Urine RBC 0-2 (0) /HPF Urine WBC 0 (0-4) /HPF Ur Squamous Epith Cells 2+ /LPF Urine Bacteria 1+ /LPF Discharge Plan Discharge Clinical Impression: Renal colic on right side Patient Disposition: Home, Self-Care Instructions: Renal Colic (ED) Additional Instructions: No stone seen on the right side likely either you passed the stone or you have pain from musculoskeletal etiology Drink plenty of fluids and follow with urologist Prescriptions: New tramadol 50 mg tablet 50 mg PO Q6H PRN (Reason: pain) Qty: 20 RF: 0 No Action naproxen 500 mg tablet 500 mg PO DAILY PRN (Reason: pain) Qty: 30 RF: 0 naproxen 500 mg tablet 500 mg PO BID PRN (Reason: pain) RF: 0 sumatriptan succinate [Imitrex] 50 mg tablet 50 mg PO Q2H PRN (Reason: migraine headache) Qty: 10 RF: 0 levocetirizine 5 mg tablet 5 mg PO QPM PRN (Reason: allergy symptoms) Qty: 30 RF: 0 amlodipine 10 mg tablet 10 mg PO DAILY RF: 0 albuterol sulfate 90 mcg/actuation HFA aerosol inhaler 1 puff inhalation Q4H PRN (Reason: shortness of breath or wheezing) Qty: 8.5 RF: 1 losartan 50 mg tablet 50 mg PO DAILY Qty: 30 RF: 5 propranolol [Inderal LA] 60 mg capsule,extended release 24 hr 60 mg PO BEDTIME Qty: 30 RF: 2 Referrals: Eduin Barreto MD [Physician] - 1 week
[2020-10-01 17:15] LABS: MANUAL DIFF FLAG NO
[2020-10-01 17:16] LABS: Basophils Absolute Auto 0.1 X10*3/uL (0.0-0.2); Basophils Percent Auto 0.3 % (0-2); Eosinophils Absolute Auto 0.2 X10*3/uL (0.0-0.4); Eosinophils Percent Auto 1.4 % (0-4); Hematocrit 36.3 % (37-47); Hemoglobin 11.5 g/dl (12.0-16.0); Imm Gran Abs Auto 0.07 X10*3/uL (0.00-0.03); Imm Gran Pct Auto 0.5 % (0.0-0.4); Lymphocytes Absolute Auto 2.7 X10*3/uL (1.2-4.9); Lymphocytes Percent Auto 17.9 % (20-40); Mean Corpuscular HGB Conc 31.7 g/dl (31.0-35.0); Mean Corpuscular Volume 82.1 fL (80-98); Mean Platelet Volume 11.2 fL (9.4-12.3); Monocytes Percent Auto 6.6 % (2-11); Neutrophils Absolute Auto 10.9 X10*3/uL (2.0-8.3); Neutrophils Percent Auto 73.3 % (45-73); Platelet Count 280 X10*3/uL (160-400); Red Blood Count 4.42 X10*6/uL (4.20-5.50); Red Cell Distribution Width 14.3 % (11.0-16.0); White Blood Count 14.8 X10*3/uL (4.8-10.8)
[2020-10-01] MEDS: Ketorolac Tromethamine 15 MG/ML VIAL IVPUSH (17:41)
[2020-10-01] MEDS: 0.9 % Sodium Chloride 1,000 ML 999 ML IVCONT (17:41)
[2020-10-01 17:43] LABS: Anion Gap 12 (12-20); Blood Urea Nitrogen 12 mg/dL (9-16); Carbon Dioxide 25 mmol/L (22-29); Chloride 108 mmol/L (96-108); Creatinine Clr Calc Pharmacy 86.9; Estimated Glomerular Filt Rate > 60; Glucose Random 92 mg/dL (60-115); Potassium 3.6 mmol/L (3.3-5.1); Sodium 141 mmol/L (135-145)
[2020-10-01 17:48] LABS: HCG Quantitative < 2 mIU/mL
== END 2020-10-01 20:40 | disposition home or self-care (01) ==
PROVIDERS: Emergency Provider Internal Medicine; PCP Internal Medicine
DX: N23 Unspecified renal colic (principal); I10 Essential (primary) hypertension
CPT/HCPCS: 36415; 74176; 80048; 81001; 84702; 85025; 96361; 96374; 99283; 99284; J1885

== ENCOUNTER → 2020-10-30 12:15 | Outpatient (BNVA) | payer OTHER, MEDICAID, SELFPAY | PROVIDERS: PCP Internal Medicine; Visit Provider Urology ==

== ENCOUNTER 2020-11-12 15:19 | Day surgery (SDC) | payer OTHER, MEDICAID, SELFPAY ==
[2020-11-07 10:38] VITALS: BMI 28.5
--- NOTE | 2020-11-11 09:53 | HO.ANESPROP2 ---
Documented by User: Fay Sethi NP 11/11/20 09:55 HPI - Anesthesia Eval Consult details Narrative: 35yo F for Right Cystoscopy, Ureteroroscopy, Retro, Laser, Poss Stent Placement PMFSH Active Problems Active Problems: All Active Problems (Updated 11/07/20 @ 10:41 by Joya Robins RN) Migraine (Acute) Hydroureteronephrosis (Acute) History of nephrolithiasis (Acute) Environmental and seasonal allergies (Acute) Reactive airway disease (Acute) Essential hypertension (Acute) Past Medical History Medical History Anxiety Environmental and seasonal allergies Essential hypertension Flank pain History of nephrolithiasis History of panic attacks Hx of cardiac murmur Nephrolithiasis Reactive airway disease Family History Family History Mother Hypertension Surgical History Surgical History No pertinent past surgical history Social History Social History Patient Tobacco Use Status: Never used Tobacco Use of substances other than those prescribed or required for medical reasons: No Are you DNR?: No Advance Directives: No Advance Directives Information Provided: No Advance Directives on File: No Patient : No FDLMP: 10/25/2020 : No Poor oral hygiene: No Meds Allergies Allergy/AdvReac Type Severity Reaction Status Date / Time Iodinated Contrast Media AdvReac Severe Anaphylaxis Verified 11/07/20 10:36 [IV CONTRAST] azithromycin AdvReac Intermediate nausea and Verified 11/07/20 10:36 [Zithromax Z-Darvin] vomiting Home Medications Medication Instructions Recorded Confirmed Last Taken Type naproxen 500 mg tablet 500 mg PO BID PRN 09/03/20 11/07/20 Unknown History Exam Exam Date and Time: November 11, 2020 0953 Height,Weight and Vital Signs: Height 5 ft Weight 66.224 kg Pertinent Lab Results Pertinent Lab Results: Laboratory Tests 10/01/20 10/01/20 17:10 17:10 WBC 14.8 H Hgb 11.5 L Hct 36.3 L Plt Count 280 Sodium 141 Potassium 3.6 Chloride 108 Carbon Dioxide 25 BUN 12 Creatinine 0.77 Narrative Narrative: EKG 04/2020 Vent. Rate : 080 BPM ? ? Atrial Rate : 080 BPM ?? P-R Int : 130 ms? QRS Dur : 078 ms ? ? QT Int : 394 ms ? ? ? P-R-T Axes : 011 061 035 degrees ?? QTc Int : 454 ms ? Normal sinus rhythm Normal ECG When compared with ECG of 07-MAY-2020 18:42, No significant change was found Assessment and Plan Assessment Anesthesia Assessment: Chart Reviewed Documented by User: Ana Guerrero MD 11/12/20 16:39 PMFSH Past Medical History Medical History Anxiety Environmental and seasonal allergies Essential hypertension Flank pain History of nephrolithiasis History of panic attacks Hx of cardiac murmur Nephrolithiasis Reactive airway disease Family History Family History Mother Hypertension Family history of problems with anesthesia: No Surgical History Surgical History No pertinent past surgical history History of Problems with Anesthesia: No Social History Social History Patient Tobacco Use Status: Never used Tobacco Use of substances other than those prescribed or required for medical reasons: No Are you DNR?: No Advance Directives: No Advance Directives Information Provided: No Advance Directives on File: No Patient : No FDLMP: 10/25/2020 : No Poor oral hygiene: No Meds Allergies Allergy/AdvReac Type Severity Reaction Status Date / Time Iodinated Contrast Media AdvReac Severe Anaphylaxis Verified 11/07/20 10:36 [IV CONTRAST] azithromycin AdvReac Intermediate nausea and Verified 11/07/20 10:36 [Zithromax Z-Darvin] vomiting Home Medications Medication Instructions Recorded Confirmed Last Taken Type naproxen 500 mg tablet 500 mg PO BID PRN 09/03/20 11/07/20 Unknown History Exam Airway Mallampati Class: II TM Dist: >3cm Neck ROM: Full Assessment and Plan Assessment Anesthesia Assessment: Anesthesia Plan Discussed Final Anesthetic Review Family History of Problems with Anesthesia: No History of Problems with Anesthesia: No NPO: Yes ASA Class: II Final Preanesthetic Review: No Changes in Pt Med Stat, Meds/Allgs Chart Reviewed, Consent Obtained/Reviewed and Anes Risks/Benef Reviewed Patient Risk: Low Procedure Risk: Low Assessment/Block/Sedation in SS: Assess/Block/Sedation-SS Anesthetic Plan Anesthetic Plan: GA Disposition: Standard PACU
[2020-11-12] VITALS (7 sets, daily range): BP systolic 128–169; BP diastolic 64–97; PULSE 84–94; RESP 16–91; TEMP 36.2–36.5; O2SAT 100; BMI 28.4
--- NOTE | ~2020-11-12 | FL_ITS ---
EXAMINATION: XR FLUOROSCOPY WITH IMAGES CLINICAL INFORMATION: Right ureteral stone COMPARISON: 10/01/2020 TECHNIQUE: Fluoroscopy performed by Dr. Eduin Barreto. Fluoroscopy time: 39.1 seconds Images: 1 FINDINGS: Single image submitted for review demonstrates a distal end of a right nephroureteral stent, and contrast within the bladder. FL/FL guidance in OR IMPRESSION: Intraoperative fluoroscopy provided as above. Please see operative report.
[2020-11-12 16:05] LABS: UPreg QC Valid YES; Urine Pregnancy NEGATIVE (NEGATIVE)
[2020-11-12] MEDS: levoFLOXacin 500 MG TABLET PO (16:21)
[2020-11-12] MEDS: Acetaminophen 325 MG TABLET 650 MG PO (16:25)
--- NOTE | 2020-11-12 17:21 | MHC.SHP ---
Pre-Procedural Eval Section A Date of Service: 11/12/20 Section B Chief Complaint: Calculus of Kidney Details of Present Illness: Right mild hydroureteronephrosis with possible stone on right ureter Relevant Family History (Specify if Yes): No Relevant Social History: None Present Medications: see Short Stay Collaborative assessment Medical History: No relevant PMH History of Previous Operations: No relevant previous surgery Allergies: Allergies Allergy/AdvReac Type Severity Reaction Status Date / Time Iodinated Contrast Media AdvReac Severe Anaphylaxis Verified 11/07/20 10:36 [IV CONTRAST] azithromycin AdvReac Intermediate nausea and Verified 11/07/20 10:36 [Zithromax Z-Darvin] vomiting Review of Systems Sugical H&P ROS: Negative: Constitution, Cardiovascular, Respiratory, Neurological, Psychiatric, Hem-Onc, Allergic/Immunologic, Gastrointestinal, Genitourinary, Musculoskeletal, Integumentary, Endocrine and Eyes/Ears/Nose/Throat Exam Surgical H&P Exam: Normal: HEENT, Normal: Heart, Normal: Lungs, Normal: Extremities, Normal: Abdomen, Normal: Skin and Normal: Neurological Plan Diagnosis/Plan: Unchanged (Cystoscopy, right retrograde, right ureteroscopy, laser lithotripsy, stone basketing, stent placement) I have reviewed the history and physical and performed a pertinent physical examination on my patient. No changes have occurred unless specified.
[2020-11-12] MEDS: Lactated Ringers 1,000 ML 100 ML IVCONT (17:24)
--- NOTE | 2020-11-12 17:24 | P.CONAN_ITS ---
[facility] Active Problems Active Problems: All Active Problems (Updated 11/07/20 @ 10:41 by Joya benitez RN) Migraine (Acute) Hydroureteronephrosis (Acute) History of nephrolithiasis (Acute) Environmental and seasonal allergies (Acute) Reactive airway disease (Acute) Essential hypertension (Acute) Past Medical History Medical History Anxiety Environmental and seasonal allergies Essential hypertension Flank pain History of nephrolithiasis History of panic attacks Hx of cardiac murmur Nephrolithiasis Reactive airway disease Functional capacity: independent ambulation Patient : No Family History Family History Mother Hypertension Family history of problems with anesthesia: No Surgical History Surgical History No pertinent past surgical history History of Problems with Anesthesia: No Social History Social History Patient Tobacco Use Status: Never used Tobacco Use of substances other than those prescribed or required for medical reasons: No Are you DNR?: No Advance Directives: No Advance Directives Information Provided: No Advance Directives on File: No Patient : No FDLMP: 10/25/2020 : No Poor oral hygiene: No Meds Allergies Allergy/AdvReac Type Severity Reaction Status Date / Time Iodinated Contrast Media AdvReac Severe Anaphylaxis Verified 11/07/20 10:36 [IV CONTRAST] azithromycin AdvReac Intermediate nausea and Verified 11/07/20 10:36 [Zithromax Z-Darvin] vomiting Active Medications: Current Medications Acetaminophen (Acetaminophen 325 Mg Tablet) 650 mg PO ONCE PRN PRN Reason: Pain, Mild (Pain Scale 1-3) Albuterol Sulfate (Albuterol Sulfate (0.083%) 2.5 Mg/3 Ml Vial.Neb) 2.5 mg INHALE ONCE PRN PRN Reason: Shortness of Breath/Wheezing Diphenhydramine HCl (Diphenhydramine Hcl 50 Mg/Ml Vial) 50 mg IVPUSH ONCE ONE Stop: 11/12/20 17:24 Fentanyl (Fentanyl Citrate/Pf 100 Mcg/2 Ml Vial) 50 mcg IVPUSH Q5M PRN; Protocol PRN Reason: Pain, Severe (Pain Scale 7-10) Lactated Ringer's (Lr) 1,000 mls @ 100 mls/hr IVCONT .Q10H JAZYLN Ondansetron HCl (Ondansetron Hcl 4 Mg/2 Ml Vial) 4 mg IVPUSH ONCE PRN PRN Reason: Nausea and Vomiting Oxycodone HCl (Oxycodone Hcl Immed Release 5 Mg Tablet) 5 mg PO ONCE PRN PRN Reason: Pain, Severe (Pain Scale 7-10) Home Medications Medication Instructions Recorded Confirmed Last Taken Type naproxen 500 mg tablet 500 mg PO BID PRN 09/03/20 11/07/20 Unknown History Exam Exam Date and Time: November 12, 2020 1724 Height,Weight and Vital Signs: Height 5 ft Weight 66.075 kg Last Vital Signs Temp 97.7 F 11/12/20 16:24 Pulse 85 11/12/20 16:24 Resp 16 11/12/20 16:24 BP 169/97 H 11/12/20 16:24 Pulse Ox 100 11/12/20 16:24 Pertinent Lab Results Pertinent Lab Results: Laboratory Tests 11/12/20 15:55 Urine Test NEGATIVE Airway TM Dist: >3cm Neck ROM: Full Heart: RRR Lungs: CTA Assessment and Plan Final Anesthetic Review Family History of Problems with Anesthesia: No History of Problems with Anesthesia: No
[2020-11-12] MEDS: diphenhydrAMINE HCL 50 MG/ML VIAL IVPUSH (17:26)
--- NOTE | 2020-11-12 17:55 | W.PM.OPN ---
Operative Note Operative Note Date of Service: 11/12/20 Narrative: PreOperative Diagnosis: Hydroureteronephrosis Post Operative Diagnosis: Right hydroureteronephrosis Procedure: - cystoscopy, right retrograde - right dilatation of ureteric orifice under fluoroscopy - right ureteroscopy - right stent placement Surgeon: Dr Eduin Barreto Anesthesia: General Indications for procedure: This is a 35-year-old female. Known stone former. Had been in the emergency room with right-sided flank pain. Imaging and showed hydroureteronephrosis down to the pelvic brim. Stone status was indeterminate. Given persistent discomfort recommend right retrograde with ureteroscopy in order to verify possible stone stricture Procedure: After informed consent was verified patient was brought to the operating placed in supine position. Anesthesia was administered per protocol. Patient was placed in modified dorsal lithotomy position and prepped and draped in a sterile fashion. Safety pause time-out and side of surgery confirmed. Antibiotics confirmed. Twenty-two Azerbaijani cystoscope placed per urethra. No abnormality noted the bladder. Both ureteric orifices normal position. Right ureteric orifice was cannulated and retrograde examination performed. Appeared to be mild hydroureteronephrosis from approximately the pelvic brim. Sensor guidewire was placed This Jason dilator used to dilate right ureteric orifice under fluoroscopy. Right rigid ureteroscopy performed. Some degree of narrowing over the pelvic brim however this was mostly physiologic. No definitive evidence of scarring. Rigid ureteral scope removed. Six [place]ij[place] by 22 cm stent placed over the Sensor wire up to the renal pelvis with good coil in renal pelvis in the bladder. Bladder emptied. Patient tolerated procedure well was extubated in operating room transferred in stable condition to the recovery area. Pathology: Hydroureteronephrosis presumed stone passage Drains: 6 [place]ij[place] by 22 cm stent
[2020-11-12] MEDS: Phenazopyridine HCL 100 MG TABLET PO (18:26)
== END 2020-11-12 18:58 | disposition home or self-care (01) ==
PROVIDERS: Nurse Practitioner; PCP Internal Medicine; Visit Provider Urology
PROC: (CPT 52351; principal; 2020-11-12 16:30)
DX: N13.30 Unspecified hydronephrosis (principal); R10.9 Unspecified abdominal pain; Z87.442 Personal history of urinary calculi; I10 Essential (primary) hypertension; J45.909 Unspecified asthma, uncomplicated; F12.90 Cannabis use, unspecified, uncomplicated; Z91.041 Radiographic dye allergy status; Z88.1 Allergy status to other antibiotic agents; Z87.891 Personal history of nicotine dependence
CPT/HCPCS: 52351; 52332; 81025; C1769; C2617; J1200; J1885; J2250; J3010; Q9967

== ENCOUNTER → 2020-11-21 10:37 | Outpatient (BNVA) | payer OTHER, MEDICAID, SELFPAY | PROVIDERS: PCP Internal Medicine; Visit Provider Urology ==

== ENCOUNTER 2020-11-25 15:25 | Inpatient (IN) | payer OTHER, MEDICAID, SELFPAY ==
--- NOTE | ~2020-11-25 | CT_ITS ---
EXAMINATION: CT ABDOMEN AND PELVIS WITHOUT CONTRAST CLINICAL INFORMATION: Right flank and groin pain. Recent ureteral stent. Evaluate for pyelonephritis. COMPARISON: Multiple priors, most recent CT abdomen/pelvis dated 10/01/2020. TECHNIQUE: Multidetector volumetric imaging was performed from the superior aspect of the liver through the pubic symphysis. Sagittal and coronal reformatted images were obtained on the technologist's workstation. This CT examination was performed using dose optimization techniques as appropriate, variously including the following: *Automated exposure control. *Adjustment of mA and/or kV according to patient size (this includes techniques or standardized protocols for targeted exams where dose is matched to indication/reason for exam; i.e. extremities or head). *Use of iterative reconstruction technique. DLP: 470 mGy-cm FINDINGS: LUNG BASES: The visualized lung bases are unremarkable. LIVER, GALLBLADDER, AND BILIARY TREE: The liver is normal in size, shape, and attenuation. No focal hepatic lesion or biliary ductal dilatation is present. The gallbladder is unremarkable with no evidence of radiopaque gallstones, gallbladder wall thickening, or obvious pericholecystic inflammatory changes. PANCREAS: Unremarkable. SPLEEN: Unremarkable. ADRENAL GLANDS: Unremarkable. KIDNEYS AND URETERS: The kidneys are normal in size, shape, and attenuation. Mild right-sided hydroureteronephrosis, decreased when compared to the prior examination. Minimal periureteral stranding has also decreased. No right-sided renal stone. Redemonstration of a left upper pole 0.2 cm renal stone, unchanged. No left-sided hydronephrosis or hydroureter. BLADDER: Nondistended and unremarkable. GASTROINTESTINAL TRACT: Mild stool burden. No small or large bowel obstruction. Unremarkable appendix. PERITONEAL CAVITY: No intra-abdominal free air or free fluid. No intra-abdominal mass or organized fluid collection/abscess formation. ABDOMINAL WALL: No significant hernia is appreciated. LYMPH NODES: Normal. VASCULAR: Unremarkable. PELVIC VISCERA: The uterus and adnexa are unremarkable. OSSEOUS STRUCTURES: Unremarkable. CT/CT abdomen pelvis wo con IMPRESSION: 1. Mild right-sided hydroureteronephrosis with minimal adjacent stranding, decreased when compared to the CT dated 10/01/2020. No right-sided renal or ureteral stone. 2. Left upper pole 0.2 cm renal stone, unchanged. No left-sided hydroureteronephrosis.
[2020-11-25 15:43] VITALS: BP 164/102; PULSE 101; RESP 18; TEMP 37.2; O2SAT 100; BMI 27.8
--- NOTE | 2020-11-25 15:46 | ED.FEMALEGU ---
HPI - Female Genitourinary General Chief complaint: Urogenital-Female Stated complaint: post op infection Time Seen by Provider: 11/25/20 15:42 Related Data Home Medications Medication Instructions Recorded Confirmed losartan 50 mg tablet 50 mg PO BID 11/26/20 11/26/20 Previous Rx's Medication Instructions Recorded tamsulosin 0.4 mg capsule 0.4 mg PO BEDTIME 14 Days #14 cap 11/12/20 tramadol 50 mg tablet 50 mg PO Q6H PRN #14 tab 11/12/20 sulfamethoxazole 800 1 tab PO BID 5 Days #10 tab 11/21/20 mg-trimethoprim 160 mg tablet (Bactrim DS) Allergies Allergy/AdvReac Type Severity Reaction Status Date / Time levofloxacin [From Levaquin] Allergy Intermediate Rash Verified 11/21/20 10:55 Iodinated Contrast Media AdvReac Severe Anaphylaxis Verified 11/21/20 10:55 [IV CONTRAST] azithromycin AdvReac Intermediate nausea and Verified 11/21/20 10:55 [Zithromax Z-Darvin] vomiting PMFSH Past Medical History Medical History Anxiety Environmental and seasonal allergies Essential hypertension Flank pain History of nephrolithiasis History of panic attacks Hx of cardiac murmur Nephrolithiasis Reactive airway disease Surgical History No pertinent past surgical history Family History Family History Mother Hypertension Social History Social History Alcohol intake: never Patient Tobacco Use Status: Never used Tobacco Use of substances other than those prescribed or required for medical reasons: No Advance Directives: No Advance Directives Information Provided: No Patient : No service: No Current occupational status: employed Physical Exam Vital Signs: Vital Signs: Last Vital Signs Temp 98.2 F 11/26/20 00:21 Pulse 79 11/26/20 12:07 Resp 18 11/26/20 12:07 BP 121/66 11/26/20 12:07 Pulse Ox 100 11/26/20 12:07 Body Mass Index 27.8 Course Course Course Narrative: 1545-This is a rapid medical exam. Patient had stent placement then removal by Dr Barreto complicated by a UTI treated with bactrim. Now having continued right sided flank/abdominal pain with urinary burning, frequency and urgency. No fevers, chills, nausea, vomiting. Will check labs/UA. Deferred additional HPI, ROS, PE to primary provider. MDM - Female Genitourinary Lab Data Result diagrams: 11/26/20 07:46 11/26/20 07:46 Labs: Lab Results 11/25/20 11/25/20 11/25/20 Range/Units 16:29 16:29 16:32 WBC 11.5 H (4.8-10.8) X10*3/uL RBC 4.50 (4.20-5.50) X10*6/uL Hgb 11.8 L (12.0-16.0) g/dl Hct 36.8 L (37-47) % MCV 81.8 (80-98) fL MCH 26.2 L (27.0-33.0) pg MCHC 32.1 (31.0-35.0) g/dl RDW 14.6 (11.0-16.0) % Plt Count 337 (160-400) X10*3/uL MPV 11.1 (9.4-12.3) fL Immature Gran % (Auto) 0.4 (0.0-0.4) % Neut % (Auto) 63.6 (45-73) % Lymph % (Auto) 26.3 (20-40) % [place] % (Auto) 6.7 (2-11) % Eos % (Auto) 2.5 (0-4) % Baso % (Auto) 0.5 (0-2) % Lymph # (Auto) 3.0 (1.2-4.9) X10*3/uL [place] # (Auto) 0.8 (0.1-1.2) X10*3/uL Eos # (Auto) 0.3 (0.0-0.4) X10*3/uL Baso # (Auto) 0.1 (0.0-0.2) X10*3/uL Abs Immat Gran (auto) 0.05 H (0.00-0.03) X10*3/uL Absolute Neuts (auto) 7.3 (2.0-8.3) X10*3/uL Absolute Nucleated RBC 0.000 (0.0-0.012) X10*3/uL Nucleated RBC % (auto) 0.0 (0.0-0.2) /100WBC Sodium (135-145) mmol/L Potassium (3.3-5.1) mmol/L Chloride (96-108) mmol/L Carbon Dioxide (22-29) mmol/L Anion Gap (12-20) BUN (9-16) mg/dL Creatinine (0.5-1.4) mg/dL Estim Creat Clear Calc Estimated GFR Random Glucose (60-115) mg/dL Lactic Acid (0.5-2.0) mmol/L Calcium (8.4-10.2) mg/dL Total Bilirubin (0.0-1.0) mg/dL Direct Bilirubin (0.0-0.5) mg/dL AST (5-31) U/L ALT (0-31) U/L Alkaline Phosphatase (39-117) U/L Total Protein (6.5-8.0) g/dL Albumin (3.5-5.0) g/dL Urine Color YELLOW Urine Appearance HAZY Urine pH 6.0 (5.0-8.0) Ur Specific [place] >= 1.030 H (1.005-1.025) Urine Protein NEG (NEG-TRACE) MG/DL Urine Glucose (UA) NEG (NEG) MG/DL Urine Ketones NEG (NEG) MG/DL Urine Blood NEG (NEG) Urine Nitrite NEG (NEG) Ur Leukocyte Esterase TRACE H (NEG) Urine RBC 0-2 (0) /HPF Urine WBC 5-9 H (0-4) /HPF Ur Squamous Epith Cells 1+ /LPF Urine Bacteria 2+ /LPF Urine Test NEGATIVE (NEGATIVE) 11/25/20 11/25/20 Range/Units 16:32 21:13 WBC (4.8-10.8) X10*3/uL RBC (4.20-5.50) X10*6/uL Hgb (12.0-16.0) g/dl Hct (37-47) % MCV (80-98) fL MCH (27.0-33.0) pg MCHC (31.0-35.0) g/dl RDW (11.0-16.0) % Plt Count (160-400) X10*3/uL MPV (9.4-12.3) fL Immature Gran % (Auto) (0.0-0.4) % Neut % (Auto) (45-73) % Lymph % (Auto) (20-40) % [place] % (Auto) (2-11) % Eos % (Auto) (0-4) % Baso % (Auto) (0-2) % Lymph # (Auto) (1.2-4.9) X10*3/uL [place] # (Auto) (0.1-1.2) X10*3/uL Eos # (Auto) (0.0-0.4) X10*3/uL Baso # (Auto) (0.0-0.2) X10*3/uL Abs Immat Gran (auto) (0.00-0.03) X10*3/uL Absolute Neuts (auto) (2.0-8.3) X10*3/uL Absolute Nucleated RBC (0.0-0.012) X10*3/uL Nucleated RBC % (auto) (0.0-0.2) /100WBC Sodium 141 (135-145) mmol/L Potassium 4.1 (3.3-5.1) mmol/L Chloride 107 (96-108) mmol/L Carbon Dioxide 25 (22-29) mmol/L Anion Gap 13 (12-20) BUN 13 (9-16) mg/dL Creatinine 0.78 (0.5-1.4) mg/dL Estim Creat Clear Calc 84.4 Estimated GFR > 60 Random Glucose 75 (60-115) mg/dL Lactic Acid 1.0 (0.5-2.0) mmol/L Calcium 9.5 (8.4-10.2) mg/dL Total Bilirubin < 0.2 (0.0-1.0) mg/dL Direct Bilirubin < 0.2 (0.0-0.5) mg/dL AST 12 (5-31) U/L ALT 11 (0-31) U/L Alkaline Phosphatase 98 (39-117) U/L Total Protein 7.6 (6.5-8.0) g/dL Albumin 4.4 (3.5-5.0) g/dL Urine Color Urine Appearance Urine pH (5.0-8.0) Ur Specific [place] (1.005-1.025) Urine Protein (NEG-TRACE) MG/DL Urine Glucose (UA) (NEG) MG/DL Urine Ketones (NEG) MG/DL Urine Blood (NEG) Urine Nitrite (NEG) Ur Leukocyte Esterase (NEG) Urine RBC (0) /HPF Urine WBC (0-4) /HPF Ur Squamous Epith Cells /LPF Urine Bacteria /LPF Urine Test (NEGATIVE) Discharge Plan Discharge Clinical Impression: Pyelonephritis Patient Disposition: Admitted As Inpatient
[2020-11-25 16:37] LABS: MANUAL DIFF FLAG NO
[2020-11-25 16:41] LABS: Basophils Absolute Auto 0.1 X10*3/uL (0.0-0.2); Basophils Percent Auto 0.5 % (0-2); Eosinophils Absolute Auto 0.3 X10*3/uL (0.0-0.4); Eosinophils Percent Auto 2.5 % (0-4); Hematocrit 36.8 % (37-47); Hemoglobin 11.8 g/dl (12.0-16.0); Imm Gran Abs Auto 0.05 X10*3/uL (0.00-0.03); Imm Gran Pct Auto 0.4 % (0.0-0.4); Lymphocytes Percent Auto 26.3 % (20-40); Mean Corpuscular HGB Conc 32.1 g/dl (31.0-35.0); Mean Corpuscular Hemoglobin 26.2 pg (27.0-33.0); Mean Corpuscular Volume 81.8 fL (80-98); Mean Platelet Volume 11.1 fL (9.4-12.3); Monocytes Absolute Auto 0.8 X10*3/uL (0.1-1.2); Monocytes Percent Auto 6.7 % (2-11); Neutrophils Absolute Auto 7.3 X10*3/uL (2.0-8.3); Neutrophils Percent Auto 63.6 % (45-73); Platelet Count 337 X10*3/uL (160-400); Red Cell Distribution Width 14.6 % (11.0-16.0); White Blood Count 11.5 X10*3/uL (4.8-10.8)
[2020-11-25 16:50] LABS: Appearance Urine HAZY; Color Urine YELLOW; Glucose Urine UA NEG (NEG); Leukocyte Esterase Urine TRACE (NEG); Nitrite Urine NEG (NEG); Specific Gravity - Urine >= 1.030 (1.005-1.025); UACC Culture Trigger YES; Urine Blood NEG (NEG); Urine Ketones NEG (NEG); Urine Protein NEG (NEG-TRACE)
[2020-11-25 16:55] LABS: UPreg QC Valid YES; Urine Pregnancy NEGATIVE (NEGATIVE)
[2020-11-25 17:05] LABS: RBC Urine 0-2 /HPF (0); Squamous Epithelial Cell Urine 1+ /LPF
[2020-11-25 17:06] LABS: Bacteria Urine 2+ /LPF
[2020-11-25 17:06] LABS: Alanine Aminotransferase 11 U/L (0-31); Albumin Level 4.4 g/dL (3.5-5.0); Alkaline Phosphatase 98 U/L (39-117); Anion Gap 13 (12-20); Aspartate Amino Transferase 12 U/L (5-31); Bilirubin Direct < 0.2 mg/dL (0.0-0.5); Bilirubin Total < 0.2 mg/dL (0.0-1.0); Blood Urea Nitrogen 13 mg/dL (9-16); Calcium 9.5 mg/dL (8.4-10.2); Carbon Dioxide 25 mmol/L (22-29); Chloride 107 mmol/L (96-108); Creatinine Clr Calc Pharmacy 84.4; Estimated Glomerular Filt Rate > 60; Glucose Random 75 mg/dL (60-115); Potassium 4.1 mmol/L (3.3-5.1); Sodium 141 mmol/L (135-145); Total Protein 7.6 g/dL (6.5-8.0)
[2020-11-25 20:00] VITALS: BP 138/72; PULSE 101; RESP 18; O2SAT 98
--- NOTE | 2020-11-25 20:21 | ED_ITS ---
HPI - Abdominal Pain General Chief Complaint: Urogenital-Female Stated Complaint: post op infection Time Seen by Provider: 11/25/20 15:42 Source: patient Mode of arrival: ambulatory Limitations: no limitations History of Present Illness HPI narrative: 35-year-old female presents with right flank pain, groin pain, an d worsening UTI symptoms. Patient was seen by Dr. Barreto for multiple procedures and was given a course of antibiotics. MD elicited complaint: flank pain Pertinent past history: kidney stones Onset (ago): week(s) Pain Consistency: constant Location: RLQ, R flank, suprapubic and groin Severity: severe Pain scale (0-10): 9 Quality: stabbing and aching Exacerbating factors: movement Relieving factors: nothing Context: recent antibiotic use Associated symptoms: nausea, chills and dysuria Treatments prior to arrival: prescription analgesics Related Data Home Medications Medication Instructions Recorded Confirmed naproxen 500 mg tablet 500 mg PO BID PRN 09/03/20 11/07/20 Previous Rx's Medication Instructions Recorded levocetirizine 5 mg tablet 5 mg PO QPM PRN #30 tab 02/08/20 albuterol sulfate 90 mcg/actuation 1 puff INHALATION Q4H PRN #8.5 g 02/22/20 aerosol inhaler losartan 50 mg tablet 50 mg PO DAILY #30 tab 04/19/20 sumatriptan succinate 50 mg tablet 50 mg PO Q2H PRN #10 tab 05/08/20 (Imitrex) cyclobenzaprine 5 mg tablet 5 mg PO BID PRN #20 tab 10/21/20 phenazopyridine 100 mg tablet 100 mg PO TID PRN 4 Days #12 tab 11/12/20 (Pyridium) tamsulosin 0.4 mg capsule 0.4 mg PO BEDTIME 14 Days #14 cap 11/12/20 tramadol 50 mg tablet 50 mg PO Q6H PRN #14 tab 11/12/20 sulfamethoxazole 800 1 tab PO BID 5 Days #10 tab 11/21/20 mg-trimethoprim 160 mg tablet (Bactrim DS) Allergies Allergy/AdvReac Type Severity Reaction Status Date / Time levofloxacin [From Levaquin] Allergy Intermediate Rash Verified 11/21/20 10:55 Iodinated Contrast Media AdvReac Severe Anaphylaxis Verified 11/21/20 10:55 [IV CONTRAST] azithromycin AdvReac Intermediate nausea and Verified 11/21/20 10:55 [Zithromax Z-Darvin] vomiting Review of Systems Review of Systems Constitutional: No Fever, positive Chills ENT/Mouth: No sore throat Eyes: No Eye Pain, No Swelling, No Redness Cardiovascular: No Chest Pain, No SOB Respiratory: No Cough, No Sputum, No Wheezing Gastrointestinal: positive Nausea, no Vomiting, No Diarrhea, positive abdominal pain Genitourinary: positive Dysuria, positive urinary frequency, positive Hematuria, positive Flank Pain, positive hesitancy Musculoskeletal: No joint pain, No Myalgias Skin: No Skin Lesions, No rash Neuro: No Weakness, No Numbness, No Headache Psych: No Anxiety/Panic, No Depression Heme/Lymph: No Bruising, No Lymphadenopathy Endocrine: No Polyuria, No Polydipsia Yes all other systems are reviewed and are negative Physical Exam Vital Signs: Vital Signs: Last Vital Signs Temp 98.9 F 11/25/20 15:43 Pulse 78 11/25/20 22:00 Resp 15 11/25/20 22:00 BP 160/72 H 11/25/20 22:00 Pulse Ox 98 11/25/20 22:00 Body Mass Index 27.8 Appearance: Alert. Oriented X3. Moderate distress. Eyes: Pupils equal, round and reactive to light. Sclera nonicteric. ENT: Pharynx normal. Moist mucous membranes. Neck: Normal inspection. Neck supple. CVS: Normal heart rate and rhythm. Pulses normal. Respiratory: No respiratory distress. Breath sounds normal. Abdomen: Soft and right lower quadrant tenderness. Positive CVA tenderness right greater than the left. Skin: Skin warm and dry. Normal skin color. Normal skin turgor. Extremities: No lower extremity edema. Gait well balanced well coordinated. Neuro: No motor deficit. No sensory deficit. Cranial nerves 2-12 intact. Course Course Course Narrative: 35-year-old female presents with worsening right-sided flank pain that has radiated to her groin. She does have worsening UTI symptoms. Was treated on 11/[address] Barreto for hydroureteronephrosis on the right side. She had a cystoscopy, with a dilation of the ureteral orifice under fluoroscopy with right stent placement. To Dr. Barreto's office on 11/21/2020 because she could no longer tolerate the stent, stent was removed and she was noted to have UTI and given Bactrim. She has been taking Bactrim as prescribed however she does not feel that her urinary symptoms have resolved, and fact feels worse. Will order labs additional, CT scan of abdomen and pelvis. Labs drawn while patient was in the waiting room. Indicates elevated white count of 11.5, urinalysis positive leukocyte esterase, bacteria, and small amounts of heme. CT scan indicate mild right-sided hydroureteronephrosis with minimal adjacent stranding. Physical exam is also consistent with pyelonephritis. I did discuss this case with hospitalist, plan is to admit for pyelo. Patient agrees with this plan. Consultations Consultation #1: Fred Time: 23:15 MDM - Abdominal Pain MDM Narrative Medical decision making narrative: Pyelonephritis Differential Diagnosis Differential diagnosis: Likely abdominal pain and calculus of kidney Medical Records Attestation: I reviewed the patient's medical records. Lab Data Attestation: I reviewed the patient's lab results. Result diagrams: 11/25/20 16:32 11/25/20 16:32 Labs: Lab Results 11/25/20 11/25/20 11/25/20 Range/Units 16:29 16:29 16:32 WBC 11.5 H (4.8-10.8) X10*3/uL RBC 4.50 (4.20-5.50) X10*6/uL Hgb 11.8 L (12.0-16.0) g/dl Hct 36.8 L (37-47) % MCV 81.8 (80-98) fL MCH 26.2 L (27.0-33.0) pg MCHC 32.1 (31.0-35.0) g/dl RDW 14.6 (11.0-16.0) % Plt Count 337 (160-400) X10*3/uL MPV 11.1 (9.4-12.3) fL Immature Gran % (Auto) 0.4 (0.0-0.4) % Neut % (Auto) 63.6 (45-73) % Lymph % (Auto) 26.3 (20-40) % [place] % (Auto) 6.7 (2-11) % Eos % (Auto) 2.5 (0-4) % Baso % (Auto) 0.5 (0-2) % Lymph # (Auto) 3.0 (1.2-4.9) X10*3/uL [place] # (Auto) 0.8 (0.1-1.2) X10*3/uL Eos # (Auto) 0.3 (0.0-0.4) X10*3/uL Baso # (Auto) 0.1 (0.0-0.2) X10*3/uL Abs Immat Gran (auto) 0.05 H (0.00-0.03) X10*3/uL Absolute Neuts (auto) 7.3 (2.0-8.3) X10*3/uL Absolute Nucleated RBC 0.000 (0.0-0.012) X10*3/uL Nucleated RBC % (auto) 0.0 (0.0-0.2) /100WBC Sodium (135-145) mmol/L Potassium (3.3-5.1) mmol/L Chloride (96-108) mmol/L Carbon Dioxide (22-29) mmol/L Anion Gap (12-20) BUN (9-16) mg/dL Creatinine (0.5-1.4) mg/dL Estim Creat Clear Calc Estimated GFR Random Glucose (60-115) mg/dL Lactic Acid (0.5-2.0) mmol/L Calcium (8.4-10.2) mg/dL Total Bilirubin (0.0-1.0) mg/dL Direct Bilirubin (0.0-0.5) mg/dL AST (5-31) U/L ALT (0-31) U/L Alkaline Phosphatase (39-117) U/L Total Protein (6.5-8.0) g/dL Albumin (3.5-5.0) g/dL Urine Color YELLOW Urine Appearance HAZY Urine pH 6.0 (5.0-8.0) Ur Specific [place] >= 1.030 H (1.005-1.025) Urine Protein NEG (NEG-TRACE) MG/DL Urine Glucose (UA) NEG (NEG) MG/DL Urine Ketones NEG (NEG) MG/DL Urine Blood NEG (NEG) Urine Nitrite NEG (NEG) Ur Leukocyte Esterase TRACE H (NEG) Urine RBC 0-2 (0) /HPF Urine WBC 5-9 H (0-4) /HPF Ur Squamous Epith Cells 1+ /LPF Urine Bacteria 2+ /LPF Urine Test NEGATIVE (NEGATIVE) 11/25/20 11/25/20 Range/Units 16:32 21:13 WBC (4.8-10.8) X10*3/uL RBC (4.20-5.50) X10*6/uL Hgb (12.0-16.0) g/dl Hct (37-47) % MCV (80-98) fL MCH (27.0-33.0) pg MCHC (31.0-35.0) g/dl RDW (11.0-16.0) % Plt Count (160-400) X10*3/uL MPV (9.4-12.3) fL Immature Gran % (Auto) (0.0-0.4) % Neut % (Auto) (45-73) % Lymph % (Auto) (20-40) % [place] % (Auto) (2-11) % Eos % (Auto) (0-4) % Baso % (Auto) (0-2) % Lymph # (Auto) (1.2-4.9) X10*3/uL [place] # (Auto) (0.1-1.2) X10*3/uL Eos # (Auto) (0.0-0.4) X10*3/uL Baso # (Auto) (0.0-0.2) X10*3/uL Abs Immat Gran (auto) (0.00-0.03) X10*3/uL Absolute Neuts (auto) (2.0-8.3) X10*3/uL Absolute Nucleated RBC (0.0-0.012) X10*3/uL Nucleated RBC % (auto) (0.0-0.2) /100WBC Sodium 141 (135-145) mmol/L Potassium 4.1 (3.3-5.1) mmol/L Chloride 107 (96-108) mmol/L Carbon Dioxide 25 (22-29) mmol/L Anion Gap 13 (12-20) BUN 13 (9-16) mg/dL Creatinine 0.78 (0.5-1.4) mg/dL Estim Creat Clear Calc 84.4 Estimated GFR > 60 Random Glucose 75 (60-115) mg/dL Lactic Acid 1.0 (0.5-2.0) mmol/L Calcium 9.5 (8.4-10.2) mg/dL Total Bilirubin < 0.2 (0.0-1.0) mg/dL Direct Bilirubin < 0.2 (0.0-0.5) mg/dL AST 12 (5-31) U/L ALT 11 (0-31) U/L Alkaline Phosphatase 98 (39-117) U/L Total Protein 7.6 (6.5-8.0) g/dL Albumin 4.4 (3.5-5.0) g/dL Urine Color Urine Appearance Urine pH (5.0-8.0) Ur Specific [place] (1.005-1.025) Urine Protein (NEG-TRACE) MG/DL Urine Glucose (UA) (NEG) MG/DL Urine Ketones (NEG) MG/DL Urine Blood (NEG) Urine Nitrite (NEG) Ur Leukocyte Esterase (NEG) Urine RBC (0) /HPF Urine WBC (0-4) /HPF Ur Squamous Epith Cells /LPF Urine Bacteria /LPF Urine Test (NEGATIVE) Imaging Data CT abdomen pelvis: Attestation: I personally reviewed and interpreted this imaging study as follows: Radiologist's impression: EXAMINATION: CT ABDOMEN AND PELVIS WITHOUT CONTRAST? CLINICAL INFORMATION: Right flank and groin pain. Recent ureteral stent. Evaluate for pyelonephritis.? COMPARISON: Multiple priors, most recent CT abdomen/pelvis dated 10/01/2020.? TECHNIQUE: Multidetector volumetric imaging was performed from the superior aspect of the liver through the pubic symphysis. Sagittal and coronal reformatted images were obtained on the technologist's workstation.? This CT examination was performed using dose optimization techniques as appropriate, variously including the following: *Automated exposure control. *Adjustment of mA and/or kV according to patient size (this includes techniques or standardized protocols for targeted exams where dose is matched to indication/reason for exam; i.e. extremities or head). *Use of iterative reconstruction technique. DLP: 470 mGy-cm FINDINGS: LUNG BASES: The visualized lung bases are unremarkable.? LIVER, GALLBLADDER, AND BILIARY TREE: The liver is normal in size, shape, and attenuation. No focal hepatic lesion or biliary ductal dilatation is present. The gallbladder is unremarkable with no evidence of radiopaque gallstones, gallbladder wall thickening, or obvious pericholecystic inflammatory changes.? PANCREAS: Unremarkable.? SPLEEN: Unremarkable.? ADRENAL GLANDS: Unremarkable.? KIDNEYS AND URETERS: The kidneys are normal in size, shape, and attenuation. Mild right-sided hydroureteronephrosis, decreased when compared to the prior examination. Minimal periureteral stranding has also decreased. No right-sided renal stone. Redemonstration of a left upper pole 0.2 cm renal stone, unchanged. No left-sided hydronephrosis or hydroureter.? BLADDER: Nondistended and unremarkable.? GASTROINTESTINAL TRACT: Mild stool burden. No small or large bowel obstruction. Unremarkable appendix. PERITONEAL CAVITY: No intra-abdominal free air or free fluid. No intra-abdominal mass or organized fluid collection/abscess formation.? ABDOMINAL WALL: No significant hernia is appreciated.? LYMPH NODES: Normal. VASCULAR: Unremarkable. PELVIC VISCERA: The uterus and adnexa are unremarkable.? OSSEOUS STRUCTURES: Unremarkable.? CT/CT abdomen pelvis wo con IMPRESSION: 1. Mild right-sided hydroureteronephrosis with minimal adjacent stranding, decreased when compared to the CT dated 10/01/2020. No right-sided renal or ureteral stone. ? 2. Left upper pole 0.2 cm renal stone, unchanged. No left-sided hydroureteronephrosis.? Critical Care Time Critical Care Time Critical Care Time: Yes Total Critical Care Time: 45 Attestation: I have personally provided critical care time exclusive of time spent on separately billable procedures. Time includes review of laboratory data, radiology results, discussion with consultants, and monitoring for potential decompensation. Interventions were performed as documented. Discharge Plan Discharge Clinical Impression: Pyelonephritis Patient Disposition: Admitted As Inpatient [facility] Past Medical History Attestation statement: The following information was validated with the patient. Source: old records reviewed Medical History Anxiety Environmental and seasonal allergies Essential hypertension Flank pain History of nephrolithiasis History of panic attacks Hx of cardiac murmur Nephrolithiasis Reactive airway disease Surgical History No pertinent past surgical history Family History Family History Mother Hypertension Social History Social History Alcohol intake: never Patient Tobacco Use Status: Never used Tobacco Use of substances other than those prescribed or required for medical reasons: No Advance Directives: No Advance Directives Information Provided: No Patient : No
[2020-11-25] MEDS: cefTRIAXone sodium 1 GM in 0.9 % Sodium Chloride 50 ML IV (21:48)
[2020-11-25] MEDS: 0.9 % Sodium Chloride 1,000 ML 999 ML IVCONT (21:48)
[2020-11-25 21:49] VITALS: RESP 15
[2020-11-25] MEDS: ondansetron HCL 4 MG/2 ML VIAL IVPUSH (21:49)
[2020-11-25] MEDS: Morphine Sulfate 4 MG/ML CARTRIDGE IVPUSH (21:49)
[2020-11-25 22:00] VITALS: BP 160/72; PULSE 78; RESP 15; O2SAT 98
--- NOTE | 2020-11-25 23:19 | PM.IMHP ---
History of Present Illness Date of Service: 11/25/20 Chief Complaint: flank pain 35-year-old female with history of hypertension, nephrolithiasis, anxiety who presents to the hospital with complaints of left flank and groin pain. Patient reports that she underwent stent placement in her right ureter about 2 weeks ago and this was removed on but she continues to have urinary symptoms including dysuria, urgency, and frequency as well as flank pain that will not resolve. Patient was started on Bactrim on by her urologist but her symptoms have not improved or resolved. Patient is also complaining of chills, palpitations, no nausea or vomiting, no abdominal pain, no chest pain, no shortness of breath, no diarrhea constipation, and no lower extremity edema. On arrival to the ED patient hemodynamically stable with a temperature of 98.9?, heart rate of 101, respiratory rate of 18, blood pressure of 164/102, satting 100% on room air Labs are significant for by WBC count of 11.5, UA that is positive for leukocyte Estrace and WBC Patient will be admitted further manage Review of Systems Review of Systems: Yes all other systems are reviewed and are negative [facility] Medical History Anxiety Environmental and seasonal allergies Essential hypertension Flank pain History of nephrolithiasis History of panic attacks Hx of cardiac murmur Nephrolithiasis Reactive airway disease Family History Mother Hypertension Pertinent family history: no pertinent history Surgical History No pertinent past surgical history Social History Alcohol intake: never Patient Tobacco Use Status: Never used Tobacco Use of substances other than those prescribed or required for medical reasons: No Advance Directives: No Advance Directives Information Provided: No Patient : No Meds Allergies Allergy/AdvReac Type Severity Reaction Status Date / Time levofloxacin [From Levaquin] Allergy Intermediate Rash Verified 11/21/20 10:55 Iodinated Contrast Media AdvReac Severe Anaphylaxis Verified 11/21/20 10:55 [IV CONTRAST] azithromycin AdvReac Intermediate nausea and Verified 11/21/20 10:55 [Zithromax Z-Darvin] vomiting Home Medications Medication Instructions Recorded Confirmed Last Taken Type losartan 50 mg tablet 50 mg PO BID 11/26/20 11/26/20 11/26/20 History Physical Exam Vital Signs and Narrative: Vital Signs: Last Vital Signs Temp 98.9 F 11/25/20 15:43 Pulse 78 11/25/20 22:00 Resp 15 11/25/20 22:00 BP 160/72 H 11/25/20 22:00 Pulse Ox 98 11/25/20 22:00 Body Mass Index 27.8 Const: General: cooperative and no acute distress Orientation/consciousness: patient oriented x3 Eyes: General: appearance normal, both eyes and all related structures Pupils: Equal, round and reactive pupils present Resp: Effort & Inspection: normal respiratory effort Auscultation: clear to auscultation bilaterally Cardio: Rate: regular rate Rhythm: regular rhythm GI: Palpation (GI): Soft to palpation Auscultation: normal bowel sounds : Other: CVA tenderness left suprapubic pain Skin: General skin exam: no rashes or lesions noted Neuro: General: patient oriented x3 Cranial nerves: Yes Equal, round and reactive pupils present Cognition (Neuro): normal cognition Extrem: General: Yes normal to inspection and Yes no pedal edema Results Labs CBC and Chem 7: 11/25/20 16:32 11/25/20 16:32 Labs: Laboratory Results - last 24 hr 11/25/20 11/25/20 11/25/20 16:29 16:29 16:32 MCV 81.8 MCH 26.2 L MCHC 32.1 RDW 14.6 Plt Count 337 MPV 11.1 Immature Gran % (Auto) 0.4 Neut % (Auto) 63.6 Lymph % (Auto) 26.3 [place] % (Auto) 6.7 Eos % (Auto) 2.5 Baso % (Auto) 0.5 Lymph # (Auto) 3.0 [place] # (Auto) 0.8 Eos # (Auto) 0.3 Baso # (Auto) 0.1 Abs Immat Gran (auto) 0.05 H Absolute Neuts (auto) 7.3 Absolute Nucleated RBC 0.000 Nucleated RBC % (auto) 0.0 Anion Gap Estim Creat Clear Calc Estimated GFR Random Glucose Lactic Acid Calcium Total Bilirubin Direct Bilirubin AST ALT Alkaline Phosphatase Total Protein Albumin Urine Color YELLOW Urine Appearance HAZY Urine pH 6.0 Ur Specific [place] >= 1.030 H Urine Protein NEG Urine Glucose (UA) NEG Urine Ketones NEG Urine Blood NEG Urine Nitrite NEG Ur Leukocyte Esterase TRACE H Urine RBC 0-2 Urine WBC 5-9 H Ur Squamous Epith Cells 1+ Urine Bacteria 2+ Urine Test NEGATIVE 11/25/20 11/25/20 16:32 21:13 MCV MCH MCHC RDW Plt Count MPV Immature Gran % (Auto) Neut % (Auto) Lymph % (Auto) [place] % (Auto) Eos % (Auto) Baso % (Auto) Lymph # (Auto) [place] # (Auto) Eos # (Auto) Baso # (Auto) Abs Immat Gran (auto) Absolute Neuts (auto) Absolute Nucleated RBC Nucleated RBC % (auto) Anion Gap 13 Estim Creat Clear Calc 84.4 Estimated GFR > 60 Random Glucose 75 Lactic Acid 1.0 Calcium 9.5 Total Bilirubin < 0.2 Direct Bilirubin < 0.2 AST 12 ALT 11 Alkaline Phosphatase 98 Total Protein 7.6 Albumin 4.4 Urine Color Urine Appearance Urine pH Ur Specific [place] Urine Protein Urine Glucose (UA) Urine Ketones Urine Blood Urine Nitrite Ur Leukocyte Esterase Urine RBC Urine WBC Ur Squamous Epith Cells Urine Bacteria Urine Test Imaging Radiologist's Impressions: Impressions Abdomen/Pelvis CT 11/25/20 20:28 IMPRESSION: 1. Mild right-sided hydroureteronephrosis with minimal adjacent stranding, decreased when compared to the CT dated 10/01/2020. No right-sided renal or ureteral stone. 2. Left upper pole 0.2 cm renal stone, unchanged. No left-sided hydroureteronephrosis. Assessment and Plan (1) Pyelonephritis: Status: Acute (2) UTI (urinary tract infection): Status: Acute A 35-year-old female with history of nephrolithiasis presents post stent removal of her right ureter with urinary track symptoms found to have UTI as well as clinical evidence of pyelonephritis # UTI/pyelonephritis - status post stent removal on 11/21 - patient was on Bactrim with no relief of her symptoms - will start on IV antibiotic - follow blood and urine cultures DVT prophylaxis: lovenox Quality Stroke Does the patient have a stroke diagnosis?: No VTE Prior VTE?: No VTE Risk Level:: Medical - moderate - high VTE Device Contraindication: Treatment Not Indicated VTE Drug Contraindication: N/A - Med Ordered
[2020-11-26] VITALS (10 sets, daily range): BP systolic 111–143; BP diastolic 66–90; PULSE 79–94; RESP 15–18; TEMP 36.7–36.8; O2SAT 98–100
[2020-11-26 00:44] LABS: COVID-19 Test Negative (Negative)
[2020-11-26] MEDS: oxyCODONE HCl Immed Release 5 MG TABLET PO ×3 (04:36→18:41)
[2020-11-26 08:08] LABS: MANUAL DIFF FLAG NO
[2020-11-26 08:10] LABS: Basophils Absolute Auto 0.1 X10*3/uL (0.0-0.2); Basophils Percent Auto 0.6 % (0-2); Eosinophils Absolute Auto 0.3 X10*3/uL (0.0-0.4); Eosinophils Percent Auto 3.4 % (0-4); Hemoglobin 11.4 g/dl (12.0-16.0); Imm Gran Abs Auto 0.04 X10*3/uL (0.00-0.03); Imm Gran Pct Auto 0.5 % (0.0-0.4); Lymphocytes Absolute Auto 2.5 X10*3/uL (1.2-4.9); Lymphocytes Percent Auto 28.2 % (20-40); Mean Corpuscular HGB Conc 31.7 g/dl (31.0-35.0); Mean Corpuscular Hemoglobin 26.1 pg (27.0-33.0); Mean Corpuscular Volume 82.6 fL (80-98); Mean Platelet Volume 10.9 fL (9.4-12.3); Monocytes Absolute Auto 0.6 X10*3/uL (0.1-1.2); Monocytes Percent Auto 6.4 % (2-11); Neutrophils Absolute Auto 5.4 X10*3/uL (2.0-8.3); Neutrophils Percent Auto 60.9 % (45-73); Platelet Count 284 X10*3/uL (160-400); Red Blood Count 4.36 X10*6/uL (4.20-5.50); Red Cell Distribution Width 14.5 % (11.0-16.0); White Blood Count 8.8 X10*3/uL (4.8-10.8)
[2020-11-26 08:23] LABS: Anion Gap 13 (12-20); Blood Urea Nitrogen 8 mg/dL (9-16); Calcium 8.7 mg/dL (8.4-10.2); Carbon Dioxide 22 mmol/L (22-29); Chloride 108 mmol/L (96-108); Creatinine Clr Calc Pharmacy 92.7; Estimated Glomerular Filt Rate > 60; Glucose Random 108 mg/dL (60-115); Potassium 4.2 mmol/L (3.3-5.1); Sodium 139 mmol/L (135-145)
[2020-11-26] MEDS: Enoxaparin Sodium 40 MG/0.4 ML SYRINGE SUBCUT (08:25)
[2020-11-26] MEDS: 0.9 % Sodium Chloride Flush 3 ML SYRINGE IVFLUSH ×2 (08:25→18:41)
--- NOTE | 2020-11-26 08:27 | PC.NURSE ---
pt alert and oriented, skin pwd, respirations even and unlabored. pt reports right sided flank pain, pain at 6/10, pain get worse after urination. pt declined the enoxaprarin injecting, pt is ambulating
[2020-11-26] MEDS: Tamsulosin HCL 0.4 MG CAPSULE PO ×2 (09:11→20:29)
[2020-11-26] MEDS: Losartan Potassium 50 MG TABLET PO ×2 (09:11→20:30)
--- NOTE | 2020-11-26 12:09 | PC.NURSE ---
pt reports pain coming back pain at 8/10, medicated per mar
--- NOTE | 2020-11-26 13:31 | MHC.CM.PN ---
Met with patient in regards to discharge planning. Patient lives with her sig other and 2 children, ambulates independently and had no services prior to coming to the hospital. No services anticipated to be needed because patient is not homebound. PCP verified. Patient denies having a HCP. Information provided. Patient not interested in completing one at this time. Patient's car is in the parking lot. But she will ask her sig other to transport her home when medically stable. Continue to monitor for d/c needs.
--- NOTE | 2020-11-26 14:45 | PC.NURSE ---
pt reports feeling better after the oxycodone, pain at 4/10 pt continuous on awaiting a room assignment
--- NOTE | 2020-11-26 16:10 | P.PNIM_ITS ---
Subjective Subjective Date of Service: 11/26/20 Interval History: Pyelo nephritis, hydronephrosis Review of Systems Denies any new complaint of chest pain or shortness of breath or abdominal pain or fever or chills or nausea or vomiting Denies any cough Denies any weakness or numbness. has cva tenderness , dyuria Physical Exam Vital Signs: Vital Signs: Last Vital Signs Temp 98.2 F 11/26/20 00:21 Pulse 79 11/26/20 12:07 Resp 18 11/26/20 12:07 BP 121/66 11/26/20 12:07 Pulse Ox 100 11/26/20 12:07 Body Mass Index 27.8 Physical exam: Appearance: Alert.? Oriented X3.? not in distress.? cvs: rrr, [id number] , no murmur res: clear to auscultation ,no rhonchii or wheezing abd: no rebound or guarding ,nt, bs present. : right cva tenderness ext pulses present , no cyanosis . neuro: axo3 , nonfocal. Objective Data Active Medications Acetaminophen (Acetaminophen 325 Mg Tablet) 650 mg PO Q6H PRN PRN Reason: Pain, Mild (Pain Scale 1-3) Docusate Sodium (Docusate Sodium 100 Mg Capsule) 100 mg PO DAILY PRN PRN Reason: Constipation Enoxaparin Sodium (Enoxaparin Sodium 40 Mg/0.4 Ml Syringe) 40 mg SUBCUT Q24H [facility] Last Admin: 11/26/20 08:25 Dose: 40 mg Documented by: TALISHA Ceftriaxone Sodium 1 gm/ (Sodium Chloride) 50 mls @ 100 mls/hr IV Q24H [facility] Losartan Potassium (Losartan Potassium 50 Mg Tablet) 50 mg PO BID [facility]; Protocol Last Admin: 11/26/20 09:11 Dose: 50 mg Documented by: TALISHA Ondansetron HCl (Ondansetron Hcl 4 Mg/2 Ml Vial) 4 mg IVPUSH Q8H PRN PRN Reason: Nausea and Vomiting Oxycodone HCl (Oxycodone Hcl Immed Release 5 Mg Tablet) 5 mg PO Q6H PRN PRN Reason: Pain, Severe (Pain Scale 7-10) Last Admin: 11/26/20 12:06 Dose: 5 mg Documented by: TALISHA Sodium Chloride (0.9 % Sodium Chloride Flush 3 Ml Syringe) 3 ml IVFLUSH QSHIFT [facility] Last Admin: 11/26/20 08:25 Dose: 3 ml Documented by: TALISHA Tamsulosin HCl (Tamsulosin Hcl 0.4 Mg Capsule) 0.4 mg PO BEDTIME [facility] Last Admin: 11/26/20 09:11 Dose: 0.4 mg Documented by: TALISHA Tramadol HCl (Tramadol Hcl 50 Mg Tablet) 50 mg PO Q6H PRN PRN Reason: pain (scale score 4-6) Labs CBC & Chem 7: 11/26/20 07:46 11/26/20 07:46 Labs: Laboratory Results - last 24 hr 11/25/20 11/25/20 11/25/20 16:29 16:29 16:32 MCV 81.8 MCH 26.2 L MCHC 32.1 RDW 14.6 Plt Count 337 MPV 11.1 Immature Gran % (Auto) 0.4 Neut % (Auto) 63.6 Lymph % (Auto) 26.3 [place] % (Auto) 6.7 Eos % (Auto) 2.5 Baso % (Auto) 0.5 Lymph # (Auto) 3.0 [place] # (Auto) 0.8 Eos # (Auto) 0.3 Baso # (Auto) 0.1 Abs Immat Gran (auto) 0.05 H Absolute Neuts (auto) 7.3 Absolute Nucleated RBC 0.000 Nucleated RBC % (auto) 0.0 Anion Gap Estim Creat Clear Calc Estimated GFR Random Glucose Lactic Acid Calcium Total Bilirubin Direct Bilirubin AST ALT Alkaline Phosphatase Total Protein Albumin Urine Color YELLOW Urine Appearance HAZY Urine pH 6.0 Ur Specific [place] >= 1.030 H Urine Protein NEG Urine Glucose (UA) NEG Urine Ketones NEG Urine Blood NEG Urine Nitrite NEG Ur Leukocyte Esterase TRACE H Urine RBC 0-2 Urine WBC 5-9 H Ur Squamous Epith Cells 1+ Urine Bacteria 2+ Urine Test NEGATIVE COVID-19 (DORIAN) COVID-19 Clin Com 11/25/20 11/25/20 11/26/20 16:32 21:13 00:23 MCV MCH MCHC RDW Plt Count MPV Immature Gran % (Auto) Neut % (Auto) Lymph % (Auto) [place] % (Auto) Eos % (Auto) Baso % (Auto) Lymph # (Auto) [place] # (Auto) Eos # (Auto) Baso # (Auto) Abs Immat Gran (auto) Absolute Neuts (auto) Absolute Nucleated RBC Nucleated RBC % (auto) Anion Gap 13 Estim Creat Clear Calc 84.4 Estimated GFR > 60 Random Glucose 75 Lactic Acid 1.0 Calcium 9.5 Total Bilirubin < 0.2 Direct Bilirubin < 0.2 AST 12 ALT 11 Alkaline Phosphatase 98 Total Protein 7.6 Albumin 4.4 Urine Color Urine Appearance Urine pH Ur Specific [place] Urine Protein Urine Glucose (UA) Urine Ketones Urine Blood Urine Nitrite Ur Leukocyte Esterase Urine RBC Urine WBC Ur Squamous Epith Cells Urine Bacteria Urine Test COVID-19 (DORIAN) Negative COVID-19 Clin Com See Note 11/26/20 11/26/20 07:46 07:46 MCV 82.6 MCH 26.1 L MCHC 31.7 RDW 14.5 Plt Count 284 MPV 10.9 Immature Gran % (Auto) 0.5 H Neut % (Auto) 60.9 Lymph % (Auto) 28.2 [place] % (Auto) 6.4 Eos % (Auto) 3.4 Baso % (Auto) 0.6 Lymph # (Auto) 2.5 [place] # (Auto) 0.6 Eos # (Auto) 0.3 Baso # (Auto) 0.1 Abs Immat Gran (auto) 0.04 H Absolute Neuts (auto) 5.4 Absolute Nucleated RBC 0.000 Nucleated RBC % (auto) 0.0 Anion Gap 13 Estim Creat Clear Calc 92.7 Estimated GFR > 60 Random Glucose 108 Lactic Acid Calcium 8.7 D Total Bilirubin Direct Bilirubin AST ALT Alkaline Phosphatase Total Protein Albumin Urine Color Urine Appearance Urine pH Ur Specific [place] Urine Protein Urine Glucose (UA) Urine Ketones Urine Blood Urine Nitrite Ur Leukocyte Esterase Urine RBC Urine WBC Ur Squamous Epith Cells Urine Bacteria Urine Test COVID-19 (DORIAN) COVID-19 Clin Com Microbiology Microbiology Results: Microbiology 11/25/20 20:22 Urine Culture - Preliminary Urine clean catch - Urine benedict top No growth to date. Assessment and Plan (1) Pyelonephritis: Status: Acute (2) Hydroureteronephrosis: Status: Acute Assessment and Plan: 35-year-old female with history of nephrolithiasis presents post stent removal of her right ureter with urinary track symptoms found to have UTI as well as clinical evidence of pyelonephritis 1. UTI/pyelonephritis- status post stent removal on 11/21 - patient was on Bactrim with no relief of her symptoms started on IV antibiotic-ceftriaxone day2. - follow blood and urine cultures urology eval DVT prophylaxis:? lovenox Quality Stroke Does the patient have a stroke diagnosis?: No VTE Prior VTE?: No VTE Risk Level:: Medical - moderate - high VTE Device Contraindication: Treatment Not Indicated VTE Drug Contraindication: N/A - Med Ordered
[2020-11-26] MEDS: cefTRIAXone sodium 1 GM in 0.9 % Sodium Chloride 50 ML IV (20:31)
--- NOTE | 2020-11-26 20:34 | PC.NURSE ---
medicated per Mar.
--- NOTE | 2020-11-26 23:26 | PC.NURSE ---
Report given to receiving unit.
[2020-11-27] VITALS: RESP 16
[2020-11-27] MEDS: 0.9 % Sodium Chloride Flush 3 ML SYRINGE IVFLUSH ×2 (00:03→10:18)
[2020-11-27 03:53] VITALS: BP 102/59; PULSE 95; RESP 14; TEMP 36.5; O2SAT 100
[2020-11-27] MEDS: ondansetron HCL 4 MG/2 ML VIAL IVPUSH (04:55)
--- NOTE | 2020-11-27 07:47 | PM.UROCN ---
History of Present Illness Consult details Consult date: 11/26/20 Narrative: Ade is a very pleasant female. Presents to the emergency department with left pyelonephritis Cystoscopy with stent removal performed in office 2 days ago Noted to have UTI at time of procedure Antibiotics given with prescription for Bactrim It appears the pyelonephritis did not respond to Bactrim Will be admitted to hospital for IV medication and culture Review of Systems Constitutional: Constitutional: Denies chills and Denies fever(s) Cardiovascular: Cardiovascular: Reports no additional cardiovascular complaints and Denies syncope Respiratory: Respiratory: Denies cough Gastrointestinal: Gastrointestinal: Denies abdominal pain and Denies heartburn Genitourinary: Genitourinary: Reports as per HPI and Denies change in libido Neurologic: Denies syncope Psychiatric: Psychiatric: Denies change in libido Endocrine: Endocrine: Denies change in libido PMFSH Past Medical History Medical History Anxiety Environmental and seasonal allergies Essential hypertension Flank pain History of nephrolithiasis History of panic attacks Hx of cardiac murmur Nephrolithiasis Reactive airway disease Family History Family History Mother Hypertension Surgical History Surgical History No pertinent past surgical history Social History Social History Household Members: Family Housing: House Do you presently have visiting nurse or other home services: No Alcohol intake: never Patient Tobacco Use Status: Never used Tobacco service: No Current occupational status: employed Meds Allergies Allergy/AdvReac Type Severity Reaction Status Date / Time levofloxacin [From Levaquin] Allergy Intermediate Rash Verified 11/21/20 10:55 Iodinated Contrast Media AdvReac Severe Anaphylaxis Verified 11/21/20 10:55 [IV CONTRAST] azithromycin AdvReac Intermediate nausea and Verified 11/21/20 10:55 [Zithromax Z-Darvin] vomiting Active Medications: Current Medications Acetaminophen (Acetaminophen 325 Mg Tablet) 650 mg PO Q6H PRN PRN Reason: Pain, Mild (Pain Scale 1-3) Docusate Sodium (Docusate Sodium 100 Mg Capsule) 100 mg PO DAILY PRN PRN Reason: Constipation Enoxaparin Sodium (Enoxaparin Sodium 40 Mg/0.4 Ml Syringe) 40 mg SUBCUT Q24H [facility] Last Admin: 11/26/20 08:25 Dose: 40 mg Documented by: Ceftriaxone Sodium 1 gm/ (Sodium Chloride) 50 mls @ 100 mls/hr IV Q24H [facility] Last Infusion: 11/26/20 23:35 Dose: Infused Documented by: Losartan Potassium (Losartan Potassium 50 Mg Tablet) 50 mg PO BID [facility]; Protocol Last Admin: 11/26/20 20:30 Dose: 50 mg Documented by: Ondansetron HCl (Ondansetron Hcl 4 Mg/2 Ml Vial) 4 mg IVPUSH Q8H PRN PRN Reason: Nausea and Vomiting Last Admin: 11/27/20 04:55 Dose: 4 mg Documented by: Oxycodone HCl (Oxycodone Hcl Immed Release 5 Mg Tablet) 5 mg PO Q6H PRN PRN Reason: Pain, Severe (Pain Scale 7-10) Last Admin: 11/26/20 18:41 Dose: 5 mg Documented by: Sodium Chloride (0.9 % Sodium Chloride Flush 3 Ml Syringe) [facility] Admin: 11/27/20 00:03 Dose: 3 ml Documented by: Tamsulosin HCl (Tamsulosin Hcl 0.4 Mg Capsule) 0.4 mg PO BEDTIME [facility] Last Admin: 11/26/20 20:29 Dose: 0.4 mg Documented by: Tramadol HCl (Tramadol Hcl 50 Mg Tablet) 50 mg PO Q6H PRN PRN Reason: pain (scale score 4-6) Home Medications Medication Instructions Recorded Confirmed Last Taken Type losartan 50 mg tablet 50 mg PO DAILY 11/26/20 11/27/20 11/26/20 History Physical Exam Vital Signs: Vital Signs: Last Vital Signs Temp 97.7 F 11/27/20 03:53 Pulse 95 11/27/20 03:53 Resp 14 11/27/20 03:53 BP 102/59 L 11/27/20 03:53 Pulse Ox 100 11/27/20 03:53 Body Mass Index 27.8 Const: General: cooperative, healthy appearing, comfortable and no acute distress Orientation/consciousness: patient oriented x3 HENMT: Face and sinus: Yes normal facial exam Mouth: moist mucous membranes Neck: Neck: Yes normal visual inspection, Yes full ROM and Yes trachea midline Chest: Chest palpation & inspection: normal inspection of the chest Resp: Effort & Inspection: normal respiratory effort, able to speak in complete sentences and no respiratory distress GI: Inspection: Yes normal to inspection Back/Spine/Pelvis: Cervical Spine: normal cervical lordosis Thoracic/Lumbar Spine: thoracic and lumbar spine normal to inspection Skin: General skin exam: no rashes or lesions noted Neuro: General: patient oriented x3, gait normal, tone normal and moves all extremities Extrem: General: Yes normal to inspection and Yes capillary refill normal Results Labs Result diagrams: 11/26/20 07:46 11/26/20 07:46 Labs: Abnormal lab results 11/26/20 11/26/20 Range/Units 07:46 07:46 Hgb 11.4 L (12.0-16.0) g/dl Hct 36.0 L (37-47) % MCH 26.1 L (27.0-33.0) pg Immature Gran % (Auto) 0.5 H (0.0-0.4) % Abs Immat Gran (auto) 0.04 H (0.00-0.03) X10*3/uL BUN 8 L (9-16) mg/dL Short CBC 11/26/20 Range/Units 07:46 WBC 8.8 (4.8-10.8) X10*3/uL Hgb 11.4 L (12.0-16.0) g/dl Hct 36.0 L (37-47) % Plt Count 284 (160-400) X10*3/uL BMP 11/26/20 07:46 Sodium 139 Potassium 4.2 Chloride 108 Carbon Dioxide 22 BUN 8 L Creatinine 0.71 Calcium 8.7 D Urine 11/25/20 11/25/20 Range/Units 16:29 16:29 Urine Color YELLOW Urine Appearance HAZY Urine pH 6.0 (5.0-8.0) Ur Specific [place] >= 1.030 H (1.005-1.025) Urine Protein NEG (NEG-TRACE) MG/DL Urine Glucose (UA) NEG (NEG) MG/DL Urine Test NEGATIVE (NEGATIVE) All other labs normal. Assessment and Plan (1) Pyelonephritis: Status: Acute Admission to hospitalist with IV antibiotics Procedures Date of Service Date of Service: 11/26/20
[2020-11-27 08:00] VITALS: BP 119/68; PULSE 86; RESP 18; TEMP 36.9; O2SAT 100
--- NOTE | 2020-11-27 10:01 | PM.UROPN ---
Subjective Subjective Date of Service: 11/27/20 Interval history: Improving Good response to IV cephalsporin Would continue with oral on discharge for total of 14 days Has planned follow-up with Urology Physical Exam Vital Signs: Vital Signs: Last Vital Signs Temp 98.4 F 11/27/20 08:00 Pulse 86 11/27/20 08:00 Resp 18 11/27/20 08:00 BP 119/68 11/27/20 08:00 Pulse Ox 100 11/27/20 08:00 Body Mass Index 27.8 Const: General: cooperative, healthy appearing, comfortable and no acute distress Orientation/consciousness: patient oriented x3 HENMT: Face and sinus: Yes normal facial exam Mouth: moist mucous membranes Neck: Neck: Yes normal visual inspection, Yes full ROM and Yes trachea midline Chest: Chest palpation & inspection: normal inspection of the chest Resp: Effort & Inspection: normal respiratory effort, able to speak in complete sentences and no respiratory distress GI: Inspection: Yes normal to inspection Back/Spine/Pelvis: Cervical Spine: normal cervical lordosis Thoracic/Lumbar Spine: thoracic and lumbar spine normal to inspection Skin: General skin exam: no rashes or lesions noted Neuro: General: patient oriented x3, gait normal, tone normal and moves all extremities Extrem: General: Yes normal to inspection and Yes capillary refill normal Urology Results Labs CBC & Chem 7: 11/26/20 07:46 11/26/20 07:46 Progress Note: A&P Assessment and plan (1) Pyelonephritis: Status: Acute Assessment and Plan: See in follow-up Fall Risk Details Current Medications: Current Medications Acetaminophen (Acetaminophen 325 Mg Tablet) 650 mg PO Q6H PRN PRN Reason: Pain, Mild (Pain Scale 1-3) Docusate Sodium (Docusate Sodium 100 Mg Capsule) 100 mg PO DAILY PRN PRN Reason: Constipation Enoxaparin Sodium (Enoxaparin Sodium 40 Mg/0.4 Ml Syringe) 40 mg SUBCUT Q24H [facility] Last Admin: 11/26/20 08:25 Dose: 40 mg Documented by: Ceftriaxone Sodium 1 gm/ (Sodium Chloride) 50 mls @ 100 mls/hr IV Q24H [facility] Last Infusion: 11/26/20 23:35 Dose: Infused Documented by: Losartan Potassium (Losartan Potassium 50 Mg Tablet) 50 mg PO BID [facility]; Protocol Last Admin: 11/26/20 20:30 Dose: 50 mg Documented by: Ondansetron HCl (Ondansetron Hcl 4 Mg/2 Ml Vial) 4 mg IVPUSH Q8H PRN PRN Reason: Nausea and Vomiting Last Admin: 11/27/20 04:55 Dose: 4 mg Documented by: Oxycodone HCl (Oxycodone Hcl Immed Release 5 Mg Tablet) 5 mg PO Q6H PRN PRN Reason: Pain, Severe (Pain Scale 7-10) Last Admin: 11/26/20 18:41 Dose: 5 mg Documented by: Sodium Chloride (0.9 % Sodium Chloride Flush 3 Ml Syringe) 3 ml IVFLUSH QSHI Last Admin: 11/27/20 00:03 Dose: 3 ml Documented by: Tamsulosin HCl (Tamsulosin Hcl 0.4 Mg Capsule) 0.4 mg PO BEDTIME [facility] Last Admin: 11/26/20 20:29 Dose: 0.4 mg Documented by: Tramadol HCl (Tramadol Hcl 50 Mg Tablet) 50 mg PO Q6H PRN PRN Reason: pain (scale score 4-6) Time Spent With Patient Time: Total time spent is greater than 50% in coordination of care (as documented) at patient's floor/unit and/or counseling patient: Time with patient: less than 15 minutes Progress Note: Quality Stroke Does the patient have a stroke diagnosis?: No
[2020-11-27 10:16] VITALS: BP 119/68; PULSE 86
[2020-11-27] MEDS: oxyCODONE HCl Immed Release 5 MG TABLET PO (10:16)
[2020-11-27] MEDS: Losartan Potassium 50 MG TABLET PO (10:16)
--- NOTE | 2020-11-27 10:33 | PM.DS ---
DS: Providers Provider Date of Service: 11/27/20 Date of admission: 11/25/20 23:07 Date of discharge: 11/27/20 Primary care physician: Wendy Rivera MD Admitting clinician: Mason Abraham Consults: 11/26/20 08:39 Consult to Urology Routine Consulting Provider: Eduin Barreto Reason for consultation: Mild right-sided hydroureteronephrosis, uti DS: Diagnosis Discharge Diagnosis (1) Pyelonephritis: Status: Acute DS: Summary Hospital Course Hospital Course: 35-year-old female with history of hypertension, nephrolithiasis, anxiety who presents to the hospital with complaints of left flank and groin pain.? Patient reports that she underwent stent placement in her right ureter about 2 weeks ago and this was removed on but she continues to have urinary symptoms including dysuria, urgency, and frequency as well as flank pain that will not resolve.? Patient was started on Bactrim on by her urologist but her symptoms have not improved or resolved.? Patient is also complaining of chills, palpitations, no nausea or vomiting, no abdominal pain, no chest pain, no shortness of breath, no diarrhea constipation, and no lower extremity edema. On arrival to the ED patient hemodynamically stable with a temperature of 98.9?, heart rate of 101, respiratory rate of 18, blood pressure of 164/102, satting 100% on room air Labs are significant for by WBC count of 11.5, UA that is positive for leukocyte Estrace and WBC Hospital course: Patient came to the hospital because of UTI- she was initially on Bactrim but it was not helping subsequently came to the hospital was started on IV ceftriaxone and blood culture urine culture sent-blood culture and urine culture preliminary negative patient urinary symptoms are improving Discussed with Urology: Patient was switched to p.o. cefuroxime antibiotics upon discharge please complete the course. Mild right-sided hydroureteronephrosis-renal function seems fine:Follow-up outpatient with urology. Above management discussed with the patient in detail length she understand and in agreement with the above plan, time spent 50 minutes and 50% time spent on counseling. Significant findings: As above. Procedures performed: None. Treatment and response: As above. Complications: None. Time Spent with Patient Time attestation: Total time spent providing and/or coordinating discharge services: Discharge coordination time: Greater than 30 minutes Quality: Stroke Does the patient have a stroke diagnosis?: No Physical Exam Vital Signs: Vital Signs: Last Vital Signs Temp 98.4 F 11/27/20 08:00 Pulse 86 11/27/20 10:16 Resp 18 11/27/20 08:00 BP 119/68 11/27/20 10:16 Pulse Ox 100 11/27/20 08:00 Body Mass Index 27.8 Appearance: Alert.? Oriented X3.? not in distress.? cvs: rrr, [id number] , no murmur res: clear to auscultation ,no rhonchii or wheezing abd: no rebound or guarding ,nt, bs present. : no cva tenderness ext pulses present , no cyanosis . neuro: axo3 , nonfocal. DS: Data Data Completed and Pending Labs on day of discharge: Preliminary micro results at discharge 11/25/20 21:13 Blood Culture - Preliminary Blood - Arterial No growth after 24 hours. 11/25/20 21:08 Blood Culture - Preliminary Blood - Arterial No growth after 24 hours. 11/25/20 20:22 Urine Culture - Preliminary Urine clean catch - Urine benedict top No growth to date. Additional Comments Additional comments: ct abd: IMPRESSION: 1. Mild right-sided hydroureteronephrosis with minimal adjacent stranding, decreased when compared to the CT dated 10/01/2020. No right-sided renal or ureteral stone. ? 2. Left upper pole 0.2 cm renal stone, unchanged. No left-sided hydroureteronephrosis.? Discharge Plan Discharge Patient Disposition: Home, Self-Care Discharge Diagnosis: uti Referrals: Eduin Barreto MD [Physician] - 1 Week Wendy Rivera MD [Primary Care Provider] - 1 Week Discharge Medications: New docusate sodium 100 mg Capsule 100 mg PO DAILY PRN (Reason: Constipation) Qty: 30 RF: 0 cefuroxime axetil 500 mg tablet 500 mg PO BID Qty: 14 RF: 0 Continued losartan 50 mg tablet 50 mg PO DAILY RF: 0 tramadol 50 mg tablet 50 mg PO Q6H PRN (Reason: pain (scale score 4-6)) Qty: 14 RF: 0 tamsulosin 0.4 mg capsule 0.4 mg PO BEDTIME 14 Days Qty: 14 RF: 0 Discontinued sulfamethoxazole-trimethoprim [Bactrim DS] 800-160 mg tablet 1 tab PO BID 5 Days Qty: 10 RF: 0 Discharge Orders: Discharge Order (Routine); Ordered 11/27/20 Ordered By: Mason Abraham Diet: advance to usual diet Activity on Discharge: As tolerated Stand Alone Forms: Patient Portal Discharge page Care Plan Goals: Patient came to the hospital because of UTI- she was initially on Bactrim but it was not helping subsequently came to the hospital was started on IV ceftriaxone and blood culture urine culture sent-blood culture and urine culture preliminary negative patient urinary symptoms are improving Discussed with Urology: Patient was switched to p.o. cefuroxime antibiotics upon discharge please complete the course. Follow-up outpatient with urology. Health Concerns: As above. Plan of Treatment: As above. Assessment: As above. Discharge Date/Time: 11/27/20 11:35
--- NOTE | 2020-11-27 14:09 | MHC.CM.PN ---
Female 35 DX Pyelonephritis Discharged home no services. Family providing transportation.
== END 2020-11-27 11:35 | disposition home or self-care (01) | DRG 463 ==
LOC: HO.ED 23:16 → HO.EDOVER 11-26 00:58 → HO.IMC 11-26 23:08
PROVIDERS: Nurse Practitioner Family; Admitting Provider Internal Medicine; Emergency Provider Student in an Organized Health Care Education/Training Program; PCP Internal Medicine; Visit Provider Internal Medicine
DX: N12 Tubulo-interstitial nephritis, not specified as acute or chronic (principal); Z20.822 Contact with and (suspected) exposure to COVID-19; Z23 Encounter for immunization; Z87.442 Personal history of urinary calculi; Z79.899 Other long term (current) drug therapy
CPT/HCPCS: 36415; 74176; 80048; 80076; 81001; 81025; 83605; 85025; 87040; 87086; 87635; 90686; 96365; 96375; 99219; 99285; 99291; J0696; J1650; J2270; J2405

== ENCOUNTER 2020-12-04 14:00 | Outpatient (REF) | payer OTHER, MEDICAID, SELFPAY | END 2020-12-04 14:01 | disposition home or self-care (01) | LOC: HO.LNP 14:00 | PROVIDERS: Visit Provider Hospitalist | DX: Z11.3 Encounter for screening for infections with a predominantly sexual mode of transmission (principal) | CPT/HCPCS: 87086 ==

== ENCOUNTER 2020-12-09 13:59 | Outpatient (REF) | payer OTHER, MEDICAID, SELFPAY ==
[2020-12-09 14:14] LABS: Appearance Urine HAZY; Color Urine YELLOW; Glucose Urine UA NEG (NEG); Leukocyte Esterase Urine NEG (NEG); Nitrite Urine NEG (NEG); Specific Gravity - Urine 1.015 (1.005-1.025); Urine Blood NEG (NEG); Urine Ketones NEG (NEG); Urine Protein NEG (NEG-TRACE)
== END 2020-12-09 14:00 | disposition home or self-care (01) ==
LOC: HO.LNP 13:59
PROVIDERS: Visit Provider Family Medicine
DX: Z00.00 Encounter for general adult medical examination without abnormal findings (principal); R30.0 Dysuria
CPT/HCPCS: 81003; 87086

== ENCOUNTER 2021-01-07 13:53 | Outpatient (REF) | payer OTHER, MEDICAID, SELFPAY | END 2021-01-07 13:54 | disposition home or self-care (01) | LOC: HO.LNP 13:53 | PROVIDERS: Visit Provider Internal Medicine | DX: R10.9 Unspecified abdominal pain (principal) | CPT/HCPCS: 87086 ==

== ENCOUNTER 2021-04-19 08:11 | Emergency (ER) | payer OTHER, MEDICAID, SELFPAY ==
--- NOTE | ~2021-04-19 | US_ITS ---
EXAMINATION: US VENOUS ULTRASOUND WITH DOPPLER LOWER EXTREMITY, RIGHT CLINICAL INFORMATION: Right calf pain. Rule out deep venous thrombosis. COMPARISON: None TECHNIQUE: Ultrasound of the deep veins is performed from the hip to the calf with compression sonography and color and pulse Doppler assessment. Spectral analysis with color-flow imaging is performed. FINDINGS: There is normal venous compression and respiratory variation and augmented flow. The visualized common femoral vein, superficial femoral vein, profunda femoral vein, popliteal vein, and the trifurcation region shows no evidence of deep venous thrombosis. There is no significant popliteal fossa cyst. If the patient's symptoms persist, followup ultrasound in 5 days 7 days might be of value to exclude proximal propagation from a non-visualized calf vein. Targeted sonography of the left midcalf it the area of patient self identified concern demonstrates no abnormalities. No discrete fluid collections or soft tissue inflammatory changes are identified in this region. US/US venous duplex LE RT IMPRESSION: No DVT demonstrated in the right lower extremity. Normal right lower extremity venous ultrasonography.
[2021-04-19 08:37] VITALS: BP 178/100; PULSE 88; RESP 18; TEMP 36.8; O2SAT 100; BMI 26.9
--- NOTE | 2021-04-19 08:54 | ECG_ITS ---
Test Reason : CP Blood Pressure : / mmHG Vent. Rate : 083 BPM Atrial Rate : 083 BPM P-R Int : 116 ms QRS Dur : 084 ms QT Int : 384 ms P-R-T Axes : 042 070 033 degrees QTc Int : 451 ms Normal sinus rhythm Normal ECG When compared with ECG of 08-MAY-2020 11:18, No significant change was found Referred By: Gena Tilley Electronically Signed By:TERESITA REYNOLDS MD
--- NOTE | 2021-04-19 08:55 | ED_ITS ---
HPI - Extremity Injury (Lower) General Chief Complaint: Extremity Injury, Lower Stated Complaint: DVT? Time Seen by Provider: 04/19/21 08:53 Source: patient Mode of arrival: ambulatory Limitations: no limitations History of Present Illness HPI Narrative: 35-year-old female came in for evaluation of right calf pain. 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 Patient do not remember trauma to her right lower extremities. Patient feels intermittent left-sided chest pain for few seconds and goes away with no radiation with no other symptoms otherwise no shortness of breath, no fever, no chills. Patient declined using any contraceptive pills. Related Data Home Medications Medication Instructions Recorded Confirmed losartan 50 mg tablet 50 mg PO DAILY 11/26/20 11/28/20 Previous Rx's Medication Instructions Recorded tamsulosin 0.4 mg capsule 0.4 mg PO BEDTIME 14 Days #14 cap 11/12/20 tramadol 50 mg tablet 50 mg PO Q6H PRN #14 tab 11/12/20 docusate sodium 100 mg capsule 100 mg PO DAILY PRN #30 cap 11/27/20 ondansetron HCl 4 mg tablet 4 mg PO Q8H PRN 30 Days #30 tab 11/28/20 (Zofran) azithromycin 250 mg tablet See Rx Instructions PO .COMPLEX #6 03/25/21 tab amoxicillin 875 mg-potassium 1 tab PO Q12H #14 tab 03/26/21 clavulanate 125 mg tablet Allergies Allergy/AdvReac Type Severity Reaction Status Date / Time levofloxacin [From Levaquin] Allergy Intermediate Rash Verified 03/25/21 08:46 Iodinated Contrast Media AdvReac Severe Anaphylaxis Verified 03/25/21 08:46 [IV CONTRAST] azithromycin AdvReac Intermediate nausea and Verified 03/25/21 08:46 [Zithromax Z-Darvin] vomiting Review of Systems Review of Systems: All other systems are reviewed and are negative Constitutional: Reports as per HPI and Reports no additional constitutional complaints Eyes: Reports as per HPI and Reports no additional eye complaints Reports system reviewed and no additional complaints, except as documented Cardiovascular: Reports as per HPI and Reports no additional cardiovascular comp laints Respiratory: Reports as per HPI and Reports no additional respiratory complaints Gastrointestinal: Reports as per HPI and Reports no additional gastrointestinal complaints Genitourinary: Reports no additional female genitourinary complaints Musculoskeletal: Reports no additional musculoskeletal complaints Skin/Breast: Reports system reviewed and no additional complaints, except as docu Psychiatric: Reports no additional psychiatric complaints Endocrine: Reports no additional endocrine complaints Hematologic/Lymphatic: Reports no additional hematologic/lymphatic complaints Allergic/Immunologic: Reports no additional allergic/immunologic complaints Reports system reviewed and no additional complaints, except as documented and Reports Abnormal speech present [facility] Past Medical History Medical History Anxiety Environmental and seasonal allergies Essential hypertension Flank pain History of nephrolithiasis History of panic attacks Hx of cardiac murmur Nephrolithiasis Reactive airway disease Surgical History No pertinent past surgical history Family History Family History Mother Hypertension Social History Social History Household Members: Family Housing: House Do you presently have visiting nurse or other home services: No Alcohol intake: never Patient Tobacco Use Status: Never used Tobacco Use of substances other than those prescribed or required for medical reasons: No Advance Directives: No Advance Directives Information Provided: No service: No Current occupational status: employed Physical Exam Vital Signs: Vital Signs: Last Vital Signs Temp 98.2 F 04/19/21 08:37 Pulse 100 04/19/21 10:21 Resp 18 04/19/21 10:21 BP 140/93 H 04/19/21 10:21 Pulse Ox 100 04/19/21 10:21 BMI result Body Mass Index 26.9 Vital signs have been reviewed as appeared to be correct. Blood pressure elevated. Heart rate normal. Respiration rate normal. Temperature normal. Oxygen saturation normal. Appearance: Alert. Oriented X3. No acute distress. Head: Normal external exam. Normocephalic. Atraumatic. No Crow signs noted. No raccoon eyes noted Eyes: PERRLA. EOMI. Conjunctiva and sclera normal. Eyelids normal. ENT: TM's Normal. Pharynx normal. Uvula midline. Moist mucous membranes. No trismus noted. No drooling noted. No muffled voice noted. Neck: Normal inspection. Neck supple. FROM. No adenopathy. Thyroid Normal. No meningeal signs. No neck mass noted. CVS: Normal heart rate and rhythm. Heart sound normal. No murmurs noted. Pulses normal throughout. Respiratory: No respiratory distress. Painless inspiration. Breath sounds normal. No wheezes/rales/rhonchi noted. Chest nontender. No accessory muscle usage noted or decreased air movement noted. Abdomen: Soft and nontender. Bowel sounds normal in all 4 quadrants. No distention noted. No organomegaly noted. No visible injury noted. Back: No CVA tenderness. Full range of motion noted. Skin: Skin warm and dry. Normal skin color. Normal skin turgor. No rashes/lesions/lacerations noted. Extremities: No lower extremity edema. 2 x 2 cm area of ecchymosis in the upper right leg, no deformity, mild calf tenderness with no swelling, Extremities exhibit normal range of motion. Extremities nontender. Neuro: Oriented X 3. Cranial nerve exam: II-XII are grossly intact No motor deficit. No sensory deficit. Reflexes normal. Course Course Course Narrative: Assessment and plan. 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 Patient with history of extensive migraine taking losartan and amlodipine, initially patient found to be hypertensive but repeat blood pressure revealing a slightly elevated high blood pressure., Patient also been having nonspecific left-sided chest pain with abnormal EKG/troponin/D-dimer. Patient's symptoms is likely due to working long hours mostly standing, patient was recommended to do lower extremities elevation at night time, take NSAIDs p.r.n. symptoms. MDM - Extremity Injury (Lower) Lab Data Attestation: I reviewed the patient's lab results. Result diagrams: 04/19/21 09:22 04/19/21 09:22 Labs: Lab Results 04/19/21 04/19/21 04/19/21 Range/Units 09:22 09:22 09:22 WBC 8.7 (4.8-10.8) X10*3/uL RBC 4.36 (4.20-5.50) X10*6/uL Hgb 11.2 L (12.0-16.0) g/dl Hct 36.0 L (37.0-47.0) % MCV 82.6 (80.0-98.0) fL MCH 25.7 L (27.0-33.0) pg MCHC 31.1 (31.0-35.0) g/dl RDW 14.9 (11.0-16.0) % Plt Count 288 (160-400) X10*3/uL MPV 11.4 (9.4-12.3) fL Immature Gran % (Auto) 0.6 H (0.0-0.4) % Neut % (Auto) 63.1 (45-73) % Lymph % (Auto) 24.6 (20-40) % Blaine % (Auto) 6.6 (2-11) % Eos % (Auto) 4.4 H (0-4) % Baso % (Auto) 0.7 (0-2) % Lymph # (Auto) 2.1 (1.2-4.9) X10*3/uL Blaine # (Auto) 0.6 (0.1-1.2) X10*3/uL Eos # (Auto) 0.4 (0.0-0.4) X10*3/uL Baso # (Auto) 0.1 (0.0-0.2) X10*3/uL Abs Immat Gran (auto) 0.05 H (0.00-0.03) X10*3/uL Absolute Neuts (auto) 5.5 (2.0-8.3) x10*3/uL Absolute Nucleated RBC 0.000 (0.0-0.012) X10*3/uL Nucleated RBC % (auto) 0.0 (0.0-0.2) /100WBC D-Dimer High Sensitivty NG/ML Sodium 141 (135-145) mmol/L Potassium 3.8 (3.3-5.1) mmol/L Chloride 108 (96-108) mmol/L Carbon Dioxide 27 (22-29) mmol/L Anion Gap 10 L (12-20) BUN 13 (9-16) mg/dL Creatinine 0.68 (0.5-1.4) mg/dL Estim Creat Clear Calc 95.4 Estimated GFR > 60 Random Glucose 86 (60-115) mg/dL Calcium 9.1 (8.4-10.2) mg/dL Troponin I High Sens < 3.5 (<3.5-17.0) ng/L Urine Color Urine Appearance Urine pH (5.0-8.0) Ur Specific Menard (1.005-1.025) Urine Protein (NEG-TRACE) MG/DL Urine Glucose (UA) (NEG) MG/DL Urine Ketones (NEG) MG/DL Urine Blood (NEG) Urine Nitrite (NEG) Ur Leukocyte Esterase (NEG) 04/19/21 04/19/21 Range/Units 09:22 10:29 WBC (4.8-10.8) X10*3/uL RBC (4.20-5.50) X10*6/uL Hgb (12.0-16.0) g/dl Hct (37.0-47.0) % MCV (80.0-98.0) fL MCH (27.0-33.0) pg MCHC (31.0-35.0) g/dl RDW (11.0-16.0) % Plt Count (160-400) X10*3/uL MPV (9.4-12.3) fL Immature Gran % (Auto) (0.0-0.4) % Neut % (Auto) (45-73) % Lymph % (Auto) (20-40) % Blaine % (Auto) (2-11) % Eos % (Auto) (0-4) % Baso % (Auto) (0-2) % Lymph # (Auto) (1.2-4.9) X10*3/uL Blaine # (Auto) (0.1-1.2) X10*3/uL Eos # (Auto) (0.0-0.4) X10*3/uL Baso # (Auto) (0.0-0.2) X10*3/uL Abs Immat Gran (auto) (0.00-0.03) X10*3/uL Absolute Neuts (auto) (2.0-8.3) x10*3/uL Absolute Nucleated RBC (0.0-0.012) X10*3/uL Nucleated RBC % (auto) (0.0-0.2) /100WBC D-Dimer High Sensitivty 162 NG/ML Sodium (135-145) mmol/L Potassium (3.3-5.1) mmol/L Chloride (96-108) mmol/L Carbon Dioxide (22-29) mmol/L Anion Gap (12-20) BUN (9-16) mg/dL Creatinine (0.5-1.4) mg/dL Estim Creat Clear Calc Estimated GFR Random Glucose (60-115) mg/dL Calcium (8.4-10.2) mg/dL Troponin I High Sens (<3.5-17.0) ng/L Urine Color YELLOW Urine Appearance HAZY Urine pH 6.0 (5.0-8.0) Ur Specific Menard 1.025 (1.005-1.025) Urine Protein NEG (NEG-TRACE) MG/DL Urine Glucose (UA) NEG (NEG) MG/DL Urine Ketones NEG (NEG) MG/DL Urine Blood NEG (NEG) Urine Nitrite NEG (NEG) Ur Leukocyte Esterase NEG (NEG) Imaging Data Right lower extremity ultrasound: Attestation: I personally reviewed and interpreted this imaging study as follows: Radiologist's impression: No DVT demonstrated in the right lower extremity. Normal right lower extremity venous ultrasonography. Discharge Plan Discharge Clinical Impression: Leg edema, right, Chest pain Patient Disposition: Home, Self-Care Instructions: Leg Edema (ED) Prescriptions: No Action losartan 50 mg tablet 50 mg PO DAILY 0RF docusate sodium 100 mg Capsule 100 mg PO DAILY PRN (Reason: Constipation) Qty: 30 0RF tramadol 50 mg tablet 50 mg PO Q6H PRN (Reason: pain (scale score 4-6)) Qty: 14 0RF tamsulosin 0.4 mg capsule 0.4 mg PO BEDTIME 14 Days Qty: 14 0RF ondansetron HCl [Zofran] 4 mg tablet 4 mg PO Q8H PRN (Reason: nausea and vomiting) 30 Days Qty: 30 1RF azithromycin 250 mg tablet See Rx Instructions PO .COMPLEX Qty: 6 0RF Rx Instructions: take 500 mg today (day 1), then 250 mg for 4 days (days 2-5) PO amoxicillin-pot clavulanate 875-125 mg tablet 1 tab PO Q12H Qty: 14 0RF Referrals: Wendy Rivera MD [Primary Care Provider] - 2 days Interventions: ED Discharge Assessment Last Done: 04/19/21 11:34 Discharge Date/Time: 04/19/21 11:34
[2021-04-19 09:28] LABS: MANUAL DIFF FLAG NO
[2021-04-19 09:29] LABS: Basophils Absolute Auto 0.1 X10*3/uL (0.0-0.2); Basophils Percent Auto 0.7 % (0-2); Eosinophils Absolute Auto 0.4 X10*3/uL (0.0-0.4); Eosinophils Percent Auto 4.4 % (0-4); Hemoglobin 11.2 g/dl (12.0-16.0); Imm Gran Abs Auto 0.05 X10*3/uL (0.00-0.03); Imm Gran Pct Auto 0.6 % (0.0-0.4); Lymphocytes Absolute Auto 2.1 X10*3/uL (1.2-4.9); Lymphocytes Percent Auto 24.6 % (20-40); Mean Corpuscular HGB Conc 31.1 g/dl (31.0-35.0); Mean Corpuscular Hemoglobin 25.7 pg (27.0-33.0); Mean Corpuscular Volume 82.6 fL (80.0-98.0); Mean Platelet Volume 11.4 fL (9.4-12.3); Monocytes Absolute Auto 0.6 X10*3/uL (0.1-1.2); Monocytes Percent Auto 6.6 % (2-11); Neutrophils Absolute Auto 5.5 x10*3/uL (2.0-8.3); Neutrophils Percent Auto 63.1 % (45-73); Platelet Count 288 X10*3/uL (160-400); Red Blood Count 4.36 X10*6/uL (4.20-5.50); Red Cell Distribution Width 14.9 % (11.0-16.0); White Blood Count 8.7 X10*3/uL (4.8-10.8)
[2021-04-19 09:36] LABS: D Dimer High Sensitivity 162 NG/ML
[2021-04-19 09:44] LABS: Anion Gap 10 (12-20); Blood Urea Nitrogen 13 mg/dL (9-16); Calcium 9.1 mg/dL (8.4-10.2); Carbon Dioxide 27 mmol/L (22-29); Chloride 108 mmol/L (96-108); Creatinine Clr Calc Pharmacy 95.4; Estimated Glomerular Filt Rate > 60; Glucose Random 86 mg/dL (60-115); Potassium 3.8 mmol/L (3.3-5.1); Sodium 141 mmol/L (135-145)
[2021-04-19 09:52] LABS: Troponin-I High Sensitivity < 3.5 ng/L (<3.5-17.0)
[2021-04-19 10:21] VITALS: BP 140/93; PULSE 100; RESP 18; O2SAT 100
[2021-04-19 10:59] LABS: Appearance Urine HAZY; Color Urine YELLOW; Glucose Urine UA NEG (NEG); Leukocyte Esterase Urine NEG (NEG); Nitrite Urine NEG (NEG); Specific Gravity - Urine 1.025 (1.005-1.025); Urine Blood NEG (NEG); Urine Ketones NEG (NEG); Urine Protein NEG (NEG-TRACE)
== END 2021-04-19 11:34 | disposition home or self-care (01) ==
PROVIDERS: Emergency Provider Emergency Medicine; PCP Internal Medicine
DX: M79.661 Pain in right lower leg (principal); R60.0 Localized edema; R07.9 Chest pain, unspecified; I10 Essential (primary) hypertension
CPT/HCPCS: 36415; 80048; 81003; 84484; 85025; 85379; 93005; 93971; 99284

== ENCOUNTER 2022-02-24 08:36 | Outpatient (REF) | payer OTHER, MEDICAID, SELFPAY | END 2022-02-24 08:37 | disposition home or self-care (01) | LOC: HO.LAB 08:36 | PROVIDERS: Visit Provider Nurse Practitioner Family | DX: R39.89 Other symptoms and signs involving the genitourinary system (principal); R30.0 Dysuria | CPT/HCPCS: 87086 ==

== ENCOUNTER 2022-02-25 14:05 | Emergency (ER) | payer OTHER, MEDICAID, SELFPAY ==
--- NOTE | ~2022-02-25 | US_ITS ---
EXAMINATION: US PELVIS CLINICAL INFORMATION: Right-sided pelvic pain COMPARISON: CT abdomen pelvis 11/25/2020 TECHNIQUE: Ultrasound of the pelvis is performed using both transabdominal and transvaginal transducers along with Doppler. Transvaginal imaging is performed due to inadequate visualization transabdominally. FINDINGS: Uterus: The uterus is anteverted and measures 8.2 x 4.5 x 4.7 cm. The double wall endometrial thickness is 15 mm. The uterus is smooth in contour and has normal myometrial echogenicity. There is a small hypoechoic 9 mm diameter mass seen in the uterus which statistically represents a fibroid although unusual in appearance. This has not been seen in the past. Adnexa: Both ovaries are visualized. There is normal color flow to the adnexa. There is no ovarian torsion. There is a small amount of free pelvic fluid Right ovary measures 2.9 x 1.9 x 2.4 cm for a volume of 6.9 mL which includes a 1.6 x 1.5 x 1.5 cm corpus luteal cyst. Left ovary measures 2.6 x 1.9 x 1.1 cm for a volume of 2.9 mL and appears unremarkable. US/US pelvic ovarian doppler IMPRESSION: A cause for the patient's right-sided pelvic pain has not been found. A small subcentimeter hypoechoic mass present in the uterus, most likely a uterine fibroid. Recommend a follow-up exam in 3 months to document the stability of this finding.
--- NOTE | ~2022-02-25 | US_ITS ---
EXAMINATION: US PELVIS CLINICAL INFORMATION: Right-sided pelvic pain COMPARISON: CT abdomen pelvis 11/25/2020 TECHNIQUE: Ultrasound of the pelvis is performed using both transabdominal and transvaginal transducers along with Doppler. Transvaginal imaging is performed due to inadequate visualization transabdominally. FINDINGS: Uterus: The uterus is anteverted and measures 8.2 x 4.5 x 4.7 cm. The double wall endometrial thickness is 15 mm. The uterus is smooth in contour and has normal myometrial echogenicity. There is a small hypoechoic 9 mm diameter mass seen in the uterus which statistically represents a fibroid although unusual in appearance. This has not been seen in the past. Adnexa: Both ovaries are visualized. There is normal color flow to the adnexa. There is no ovarian torsion. There is a small amount of free pelvic fluid Right ovary measures 2.9 x 1.9 x 2.4 cm for a volume of 6.9 mL which includes a 1.6 x 1.5 x 1.5 cm corpus luteal cyst. Left ovary measures 2.6 x 1.9 x 1.1 cm for a volume of 2.9 mL and appears unremarkable. US/US pelvic and transvaginal IMPRESSION: A cause for the patient's right-sided pelvic pain has not been found. A small subcentimeter hypoechoic mass present in the uterus, most likely a uterine fibroid. Recommend a follow-up exam in 3 months to document the stability of this finding.
[2022-02-25 14:18] VITALS: BP 185/104; PULSE 112; RESP 18; TEMP 36.1; O2SAT 100
[2022-02-25 14:27] VITALS: BP 180/110; PULSE 110; O2SAT 100
[2022-02-25] MEDS: Ketorolac Tromethamine 30 MG/ML VIAL IVPUSH (14:39)
[2022-02-25] MEDS: Losartan Potassium 50 MG TABLET PO (14:41)
[2022-02-25 14:53] LABS: MANUAL DIFF FLAG NO
[2022-02-25 14:57] LABS: Basophils Absolute Auto 0.1 X10*3/uL (0.0-0.2); Basophils Percent Auto 0.5 % (0-2); Eosinophils Absolute Auto 0.2 X10*3/uL (0.0-0.4); Eosinophils Percent Auto 1.7 % (0-4); Hematocrit 37.3 % (37.0-47.0); Imm Gran Abs Auto 0.06 X10*3/uL (0.00-0.03); Imm Gran Pct Auto 0.5 % (0.0-0.4); Lymphocytes Absolute Auto 2.5 X10*3/uL (1.2-4.9); Lymphocytes Percent Auto 18.7 % (20-40); Mean Corpuscular HGB Conc 32.2 g/dl (31.0-35.0); Mean Corpuscular Hemoglobin 25.3 pg (27.0-33.0); Mean Corpuscular Volume 78.7 fL (80.0-98.0); Mean Platelet Volume 10.9 fL (9.4-12.3); Monocytes Absolute Auto 0.8 X10*3/uL (0.1-1.2); Monocytes Percent Auto 6.1 % (2-11); Neutrophils Absolute Auto 9.6 x10*3/uL (2.0-8.3); Neutrophils Percent Auto 72.5 % (45-73); Platelet Count 332 X10*3/uL (160-400); Red Blood Count 4.74 X10*6/uL (4.20-5.50); Red Cell Distribution Width 14.9 % (11.0-16.0); White Blood Count 13.3 X10*3/uL (4.8-10.8)
[2022-02-25 15:06] LABS: Appearance Urine Clear; Color Urine Yellow; Glucose Urine UA Negative (Negative); Leukocyte Esterase Urine Moderate (2+) (Negative); Nitrite Urine Negative (Negative); PH 5.5 (5.0-9.0); UMIC TRIGGER UACC YES; UPreg QC Valid YES; Urine Blood Negative (Negative); Urine Ketones 15 mg/dL (Negative); Urine Pregnancy NEGATIVE (NEGATIVE); Urine Protein 30 (1+) mg/dL (Neg-Trace)
[2022-02-25 15:08] LABS: Bacteria Urine Trace (None Seen); Hyaline Casts Urine 0-2 /LPF (0-2); RBC Urine 0-2 /HPF (0-2); UACC Culture Trigger YES; WBC Urine >50 /HPF (0-5)
--- NOTE | 2022-02-25 15:08 | ED_ITS ---
HPI - Abdominal Pain General Chief Complaint: Wound/Laceration Stated Complaint: R GROIN PAIN PER EMS Time Seen by Provider: 02/25/22 14:18 Source: patient and EMS Mode of arrival: EMS Limitations: no limitations History of Present Illness HPI narrative: 36 yo female with history of HTN, recently I&D's Bartholins cyst 5 days ago who presents to the ER via EMS for evaluation of right lower pubic pain for the last 1 day. She states the pain is dull, aching and constant - it started last night and has gotten worse. She denies any vaginal discharge or bleeding. Her Bartholins cyst is no longer draining and she has no vaginal pain. She states her last menstural cycle was 2 weeks ago. Denies chance of and she is not concerned about STIs, same partner x12 years. She denies N/V/D or pain anywhere else in her abdomen. She had right flank pain 2 days ago that has since resolved. Does not feel like her usual kidney stone pain. MD elicited complaint: abdominal pain Pertinent past history: kidney stones Onset (ago): day(s) (1) Pain Consistency: constant Location: pelvis Severity: moderate Quality: aching Radiation: none Migration to: no migration Exacerbating factors: movement Relieving factors: nothing Related Data Home Medications Medication Instructions Recorded Confirmed losartan 50 mg tablet 50 mg PO DAILY 11/26/20 11/28/20 Previous Rx's Medication Instructions Recorded tamsulosin 0.4 mg capsule 0.4 mg PO BEDTIME 14 days #14 caps 11/12/20 tramadol 50 mg tablet 50 mg PO Q6H PRN pain (scale score 11/12/20 4-6) #14 tabs docusate sodium 100 mg capsule 100 mg PO DAILY PRN Constipation 11/27/20 #30 caps ondansetron HCl 4 mg tablet 4 mg PO Q8H PRN nausea and 11/28/20 (Zofran) vomiting 1 month #30 tabs azithromycin 250 mg tablet See Rx Instructions PO .COMPLEX #6 03/25/21 tabs amoxicillin 875 mg-potassium 1 tab PO Q12H #14 tabs 03/26/21 clavulanate 125 mg tablet cefuroxime axetil 250 mg tablet 250 mg PO BID 10 days #20 tabs 02/25/22 phenazopyridine 100 mg tablet 100 mg PO TID PRN pain 6 doses #6 02/25/22 (Pyridium) tabs Allergies Allergy/AdvReac Type Severity Reaction Status Date / Time levofloxacin [From Levaquin] Allergy Intermediate Rash Verified 02/24/22 08:13 Iodinated Contrast Media AdvReac Severe Anaphylaxis Verified 02/24/22 08:13 [IV CONTRAST] azithromycin AdvReac Intermediate nausea and Verified 02/24/22 08:13 [Zithromax Z-Darvin] vomiting Review of Systems Review of Systems Yes all other systems are reviewed and are negative [facility] Past Medical History Medical History Anxiety Environmental and seasonal allergies Essential hypertension Flank pain History of nephrolithiasis History of panic attacks Hx of cardiac murmur Nephrolithiasis Reactive airway disease Surgical History No pertinent past surgical history Family History Family History Mother Hypertension Social History Social History Household Members: Family Housing: House Do you presently have visiting nurse or other home services: No Alcohol intake: never Patient Tobacco Use Status: Never used Tobacco Advance Directives: No Advance Directives Information Provided: No service: No Current occupational status: employed Physical Exam ED Vital Signs: Vital Signs - 24 hr 02/25/22 14:18 02/25/22 16:30 Temperature 96.9 F 97.2 F Pulse Rate 112 H 96 Respiratory Rate 18 Blood Pressure 185/104 H 153/90 H Pulse Oximetry 100 100 Oxygen Delivery Method Room Air Room Air BMI result Body Mass Index 0.0 Appearance: Alert. Oriented X3. No acute distress. Eyes: Pupils equal, round and reactive to light. ENT: Pharynx normal. Neck: Normal inspection. Neck supple. CVS: Normal heart rate and rhythm. Pulses normal. Respiratory: No respiratory distress. Breath sounds normal. Abdomen: Soft. Right sided suprapubic tenderness without guarding or rebound. normal active +BS x4. pelvic deferred. Skin: Skin warm and dry. Normal skin color. Normal skin turgor. No rashes. Extremities: No lower extremity edema. Neuro: Oriented X 3. No motor deficit. No sensory deficit. Course Course Course Narrative: 36 yo female presenting with suprapubic pain on the right side that started last night. No urinary symptoms or concern for STI. Could be ovulation pain. Will get pelvic U/S and labs for further evaluation. HR 110 on arrival with elevated BP - did not take her BP meds today, most likely exacerbated by pain. No fever to have concern for sepsis at this time. Reevaluation(s) Reevaluation #1: Pain improved with Toradol. WBC 13K with +UA. No CVA tenderness. Given 1st dose of PO abx here. Comfortable with d/c home with PO abx and pain control. Return precautions were discussed. Medical Decision Making Differential Diagnosis Differential Diagnoses: The differential diagnosis associated with the presentation includes UTI, pyelonephritis, kidney stone, ovarian cyst, ovarian torsion, mittleschmerz, less likely PID or ovarian abscess Lab Data mild leukocytosis. UA with infection 02/25/22 14:48 02/25/22 14:48 Labs: Lab Results 02/25/22 02/25/22 02/25/22 Range/Units 14:45 14:45 14:48 WBC 13.3 H (4.8-10.8) X10*3/uL RBC 4.74 (4.20-5.50) X10*6/uL Hgb 12.0 (12.0-16.0) g/dl Hct 37.3 (37.0-47.0) % MCV 78.7 L (80.0-98.0) fL MCH 25.3 L (27.0-33.0) pg MCHC 32.2 (31.0-35.0) g/dl RDW 14.9 (11.0-16.0) % Plt Count 332 (160-400) X10*3/uL MPV 10.9 (9.4-12.3) fL Immature Gran % (Auto) 0.5 H (0.0-0.4) % Neut % (Auto) 72.5 (45-73) % Lymph % (Auto) 18.7 L (20-40) % [place] % (Auto) 6.1 (2-11) % Eos % (Auto) 1.7 (0-4) % Baso % (Auto) 0.5 (0-2) % Lymph # (Auto) 2.5 (1.2-4.9) X10*3/uL [place] # (Auto) 0.8 (0.1-1.2) X10*3/uL Eos # (Auto) 0.2 (0.0-0.4) X10*3/uL Baso # (Auto) 0.1 (0.0-0.2) X10*3/uL Abs Immat Gran (auto) 0.06 H (0.00-0.03) X10*3/uL Absolute Neuts (auto) 9.6 H (2.0-8.3) x10*3/uL Absolute Nucleated RBC 0.000 (0.0-0.012) X10*3/uL Nucleated RBC % (auto) 0.0 (0.0-0.2) /100WBC Sodium (135-145) mmol/L Potassium (3.3-5.1) mmol/L Chloride (96-108) mmol/L Carbon Dioxide (22-29) mmol/L Anion Gap (12-20) BUN (9-16) mg/dL Creatinine (0.5-1.4) mg/dL Estim Creat Clear Calc Estimated GFR Random Glucose (60-115) mg/dL Calcium (8.4-10.2) mg/dL Magnesium (1.6-2.6) mg/dL Total Bilirubin (0.0-1.0) mg/dL Direct Bilirubin (0.0-0.5) mg/dL AST (5-31) U/L ALT (0-31) U/L Alkaline Phosphatase (39-117) U/L Total Protein (6.5-8.0) g/dL Albumin (3.5-5.0) g/dL Urine Color Yellow Urine Appearance Clear Urine pH 5.5 (5.0-9.0) Ur Specific Bern 1.020 (1.005-1.025) Urine Protein 30 (1+) H (Neg-Trace) mg/dL Urine Glucose (UA) Negative (Negative) mg/dL Urine Ketones 15 (Negative) mg/dL Urine Blood Negative (Negative) Urine Nitrite Negative (Negative) Ur Leukocyte Esterase Moderate (2+) H (Negative) Urine RBC 0-2 (0-2) /HPF Urine WBC >50 H (0-5) /HPF Ur Squamous Epith Cells 6-10 (0-2) /HPF Urine Bacteria Trace (None Seen) Hyaline Casts 0-2 (0-2) /LPF Urine Test NEGATIVE (NEGATIVE) 02/25/22 Range/Units 14:48 WBC (4.8-10.8) X10*3/uL RBC (4.20-5.50) X10*6/uL Hgb (12.0-16.0) g/dl Hct (37.0-47.0) % MCV (80.0-98.0) fL MCH (27.0-33.0) pg MCHC (31.0-35.0) g/dl RDW (11.0-16.0) % Plt Count (160-400) X10*3/uL MPV (9.4-12.3) fL Immature Gran % (Auto) (0.0-0.4) % Neut % (Auto) (45-73) % Lymph % (Auto) (20-40) % [place] % (Auto) (2-11) % Eos % (Auto) (0-4) % Baso % (Auto) (0-2) % Lymph # (Auto) (1.2-4.9) X10*3/uL [place] # (Auto) (0.1-1.2) X10*3/uL Eos # (Auto) (0.0-0.4) X10*3/uL Baso # (Auto) (0.0-0.2) X10*3/uL Abs Immat Gran (auto) (0.00-0.03) X10*3/uL Absolute Neuts (auto) (2.0-8.3) x10*3/uL Absolute Nucleated RBC (0.0-0.012) X10*3/uL Nucleated RBC % (auto) (0.0-0.2) /100WBC Sodium 139 (135-145) mmol/L Potassium 3.4 (3.3-5.1) mmol/L Chloride 106 (96-108) mmol/L Carbon Dioxide 22 (22-29) mmol/L Anion Gap 14 (12-20) BUN 12 (9-16) mg/dL Creatinine 0.69 (0.5-1.4) mg/dL Estim Creat Clear Calc TNP Estimated GFR > 60 Random Glucose 88 (60-115) mg/dL Calcium 9.1 (8.4-10.2) mg/dL Magnesium 1.8 (1.6-2.6) mg/dL Total Bilirubin 0.2 (0.0-1.0) mg/dL Direct Bilirubin < 0.2 (0.0-0.5) mg/dL AST 14 (5-31) U/L ALT 15 (0-31) U/L Alkaline Phosphatase 96 (39-117) U/L Total Protein 7.6 (6.5-8.0) g/dL Albumin 4.3 (3.5-5.0) g/dL Urine Color Urine Appearance Urine pH (5.0-9.0) Ur Specific Bern (1.005-1.025) Urine Protein (Neg-Trace) mg/dL Urine Glucose (UA) (Negative) mg/dL Urine Ketones (Negative) mg/dL Urine Blood (Negative) Urine Nitrite (Negative) Ur Leukocyte Esterase (Negative) Urine RBC (0-2) /HPF Urine WBC (0-5) /HPF Ur Squamous Epith Cells (0-2) /HPF Urine Bacteria (None Seen) Hyaline Casts (0-2) /LPF Urine Test (NEGATIVE) Radiology Impression Discussion of test interpretation with radiology: I have reviewed the r adiologist's reading. Radiologist Impression: IMPRESSION: A cause for the patient's right-sided pelvic pain has not been found. A small subcentimeter hypoechoic mass present in the uterus, most likely a uterine fibroid. Recommend a follow-up exam in 3 months to document the stability of this finding. ? External Record Review External record reviewed: Office record, Outpatient record and Prior outpatient labs Prescription Management I considered prescription management with: Pain Medication and Antibiotic Medications Administered Discontinued Medications Generic Name Dose Route Start Last Admin Trade Name Freq PRN Reason Stop Dose Admin Cefuroxime Axetil 500 mg 02/25/22 16:23 02/25/22 16:33 Cefuroxime Axetil 500 Mg Tablet PO 02/25/22 16:24 500 mg ONCE ONE Administration Ketorolac Tromethamine 30 mg 02/25/22 14:29 02/25/22 14:39 Ketorolac Tromethamine 30 Mg/Ml Vial IVPUSH 02/25/22 14:30 30 mg ONCE ONE Administration Losartan Potassium 50 mg 02/25/22 14:29 02/25/22 14:41 Losartan Potassium 50 Mg Tablet PO 02/25/22 14:30 50 mg ONCE ONE Administration Protocol Phenazopyridine HCl 100 mg 02/25/22 16:23 02/25/22 16:33 Phenazopyridine Hcl 100 Mg Tablet PO 02/25/22 16:24 100 mg ONCE ONE Administration Critical Care Time Critical Care Time Critical Care Time: No Discharge Plan Discharge Clinical Impression: Pyelonephritis Patient Disposition: Home, Self-Care Instructions: Kidney Infection (ED) Additional Instructions: Your workup today showed you have a urinary tract infection. Take the prescribed antibiotic as directed. Complete the entire course and do not miss any doses. Rest and stay hydrated. Take Motrin and Tylenol as needed for pain. The prescribed Pyridium will help with bladder pain, it will also turn your urine orange, this is a normal side effect. Your ultrasound showed AA small less than 1 cm mass in the uterus, most likely uterine fibroid. Radiology is recommending follow-up exam in 3 months. Recommend following up with OBGYN for further evaluation and treatment. Name and number below Follow-up with primary care doctor If you develop new or worsening symptoms call 911 or come back to the ER for fur ther evaluation. Prescriptions: New cefuroxime axetil 250 mg tablet 250 mg PO BID 10 Days Qty: 20 0RF phenazopyridine [Pyridium] 100 mg tablet 100 mg PO TID PRN (Reason: pain) Qty: 6 0RF No Action losartan 50 mg tablet 50 mg PO DAILY docusate sodium 100 mg Capsule 100 mg PO DAILY PRN (Reason: Constipation) Qty: 30 0RF tramadol 50 mg tablet 50 mg PO Q6H PRN (Reason: pain (scale score 4-6)) Qty: 14 0RF tamsulosin 0.4 mg capsule 0.4 mg PO BEDTIME 14 Days Qty: 14 0RF ondansetron HCl [Zofran] 4 mg tablet 4 mg PO Q8H PRN (Reason: nausea and vomiting) 30 Days Qty: 30 1RF azithromycin 250 mg tablet See Rx Instructions PO .COMPLEX Qty: 6 0RF Rx Instructions: take 500 mg today (day 1), then 250 mg for 4 days (days 2-5) PO amoxicillin-pot clavulanate 875-125 mg tablet 1 tab PO Q12H Qty: 14 0RF Referrals: Wendy Rivera MD [Primary Care Provider] - Stand Alone Forms: Work/School Release Interventions: ED Discharge Assessment Last Done: 02/25/22 17:15 Discharge Date/Time: 02/25/22 17:16
[2022-02-25 15:26] LABS: Alanine Aminotransferase 15 U/L (0-31); Albumin Level 4.3 g/dL (3.5-5.0); Alkaline Phosphatase 96 U/L (39-117); Anion Gap 14 (12-20); Aspartate Amino Transferase 14 U/L (5-31); Bilirubin Direct < 0.2 mg/dL (0.0-0.5); Bilirubin Total 0.2 mg/dL (0.0-1.0); Blood Urea Nitrogen 12 mg/dL (9-16); Calcium 9.1 mg/dL (8.4-10.2); Carbon Dioxide 22 mmol/L (22-29); Chloride 106 mmol/L (96-108); Estimated Glomerular Filt Rate > 60; Glucose Random 88 mg/dL (60-115); Magnesium 1.8 mg/dL (1.6-2.6); Potassium 3.4 mmol/L (3.3-5.1); Sodium 139 mmol/L (135-145); Total Protein 7.6 g/dL (6.5-8.0)
[2022-02-25 16:30] VITALS: BP 153/90; PULSE 96; TEMP 36.2; O2SAT 100
[2022-02-25] MEDS: Phenazopyridine HCL 100 MG TABLET PO (16:33)
== END 2022-02-25 17:16 | disposition home or self-care (01) ==
PROVIDERS: Physician Assistant; Emergency Provider Emergency Medicine; PCP Internal Medicine
DX: N12 Tubulo-interstitial nephritis, not specified as acute or chronic (principal); R10.2 Pelvic and perineal pain; I10 Essential (primary) hypertension
CPT/HCPCS: 36415; 76830; 76856; 80048; 80076; 81001; 81003; 81025; 83735; 85025; 93975; 96374; 99283; 99284; J1885

== ENCOUNTER 2022-04-01 08:06 | Outpatient (REF) | payer OTHER, MEDICAID, SELFPAY ==
[2022-04-01 10:00] LABS: Hemoglobin 11.6 g/dl (12.0-16.0); Mean Corpuscular HGB Conc 31.4 g/dl (31.0-35.0); Mean Corpuscular Hemoglobin 25.4 pg (27.0-33.0); Mean Corpuscular Volume 81.1 fL (80.0-98.0); Mean Platelet Volume 11.1 fL (9.4-12.3); Platelet Count 352 X10*3/uL (160-400); Red Blood Count 4.56 X10*6/uL (4.20-5.50); Red Cell Distribution Width 15.1 % (11.0-16.0); White Blood Count 9.4 X10*3/uL (4.8-10.8)
[2022-04-01 10:50] LABS: HCG Quantitative < 2 mIU/mL; TSH reflex Free T4 0.73 uIU/mL (0.32-4.0)
[2022-04-02 10:03] LABS: CT PCR NOT DETECTED (Not Detect.); NG PCR NOT DETECTED (Not Detect.)
[2022-04-04 06:43] LABS: HPV mRNA E6/E7 rflx Not Detected (Not Detected)
== END 2022-04-01 08:07 | disposition home or self-care (01) ==
LOC: HO.LNP 08:06
PROVIDERS: PCP Internal Medicine; Visit Provider Obstetrics & Gynecology
DX: Z12.4 Encounter for screening for malignant neoplasm of cervix (principal); Z11.51 Encounter for screening for human papillomavirus (HPV); R10.2 Pelvic and perineal pain; D25.9 Leiomyoma of uterus, unspecified; N93.9 Abnormal uterine and vaginal bleeding, unspecified; N90.7 Vulvar cyst; F41.1 Generalized anxiety disorder
CPT/HCPCS: 0353U; 84443; 84702; 85027; 87624; 88142